=== PATIENT | male | born 1940 | race Two or more races ===

== ENCOUNTER → 2017-05-31 | Outpatient (REF) | payer MEDICARE, OTHER ==
[~2017-05-31] MED LIST: CIPR500T3 PO; FELO5TAB PO; LEVO75TA4 PO; LIPI20TA PO; MULT1TAB10 PO; OMEP20CA3 PO; PRIM50TA6 PO; QUIN1TAB15 PO; TRIA37.5 PO; TUDO1AER2 INH; TYLE650T35 PO; VENTAER INH
== END ==
LOC: M SMT 12:42
PROVIDERS: ATTEND Nurse Practitioner Women's Health
DX: R31.29 Other microscopic hematuria (principal)
CPT/HCPCS: 81001; 87086; 88108; G0463

== ENCOUNTER → 2017-11-20 | Outpatient (REF) | payer MEDICARE, OTHER | LOC: M SMT 17:03 | DX: Z85.51 Personal history of malignant neoplasm of bladder (principal) | CPT/HCPCS: 88108 ==

== ENCOUNTER → 2018-07-09 | Outpatient (REF) | payer MEDICARE, OTHER | LOC: M SMT 17:19 | DX: Z85.51 Personal history of malignant neoplasm of bladder (principal) | CPT/HCPCS: 88108 ==

== ENCOUNTER → 2018-10-08 | Outpatient (REF) | payer MEDICARE, OTHER ==
[~2018-10-08] MED LIST changes: -QUIN1TAB15 PO; +QUIN1TAB4 PO
== END ==
LOC: M SMT 17:42
PROVIDERS: ATTEND Urology
DX: C67.9 Malignant neoplasm of bladder, unspecified (principal)

== ENCOUNTER 2019-01-03 10:08 | Inpatient (IN) | payer MEDICARE, OTHER ==
[~2019-01-03] VITALS: Ht 175.3 cm; Wt 81.8 kg
[2019-01-03 12:46] VITALS: BP 136/61
[2019-01-03 13:08] LABS: PROTHROMBIN TIME 13.3 SECONDS (12.1-14.4)
[2019-01-03 13:09] LABS: PARTIAL THROMBOPLASTIN TIME 34.2 SECONDS (25.4-37.6)
[2019-01-03 13:16] LABS: ERYTHROCYTE SEDIMENTATION RATE 13 mm/hr (0-20)
[2019-01-03 13:18] LABS: C REACTIVE PROTEIN QUANTITATIV 4.09 MG/DL (0.00-0.30)
--- NOTE | 2019-01-03 13:49 | HPEPDOC ---
General Date of Admission Jan 03, 2019 at 12:03 Chief Complaint The patient is a 78-year-old male admitted with a reason for visit of Osteomyelitis. Source: Patient, Family History of Present Illness The patient is a 78-year-old gentleman who was sent over as a direct admission from the orthopedic office today. The patient has been having problems with low back pain ongoing for 3 weeks. Reports it started off as a soreness. One week later, because of persistent symptoms, he will was seen at an urgent care where he was prescribed Medrol Dosepak. He reports he did not have any imaging studies done at that time. Following the Medrol Dosepak, he continued to have the pain. He reports he made an appointment with the orthopedic office however they were not able to get him in right away. Last Monday, because of worsening pain, he went to the ER at [facility], very he underwent a CT scan that showed a couple of lesions that appeared concerning per his report. Thereafter, he reports that he was advised to undergo an MRI and the following day, he was seen in follow-up in the orthopedic office. MRI had shown abnormal appearance of L2-L3 vertebrae with edematous changes as well as abnormal enhancement, possibly infectious was as neoplastic. Therefore a bone scan was recommended. The patient underwent a bone scan on Monday that shows abnormal uptake in the L2L3 area concerning for discitis and osteomyelitis. The patient was seen in follow-up in the orthopedic office today and was referred to the hospital as a direct admission for further evaluation and management. The patient reports currently the pain at worst is a 10 over 10 in intensity, sharp in nature, radiating down to the left knee, worse when he puts weight on the left lower extremity and when he twists/runs, better with the Tylenol with Codeine. Denies any associated fevers/chills/sweats/chest pain/nausea/vomiting/diarrhea/headache/abdominal pain. He reports he was having some difficulty with urinationshe was seen in the urology office recently and started on Flomax following which he has been able to urinate better. Denies any new numbness or weakness in his extremities. He usually is fairly active however, the back pain has been limiting his activity. Currently has a lumbar brace that he uses with a walker to ambulate. Also reports some cough with greenish yellowish phlegm or the last couple of days which is new for him. Also reports some difficulty swallowing especially when he eats bread but otherwise has not noticed any difficulty with swallowing other foods. He reports underwent a left carotid endarterectomy on 12/05/18 at [facility] in [place]. Reports he was found to have problems with his carotid artery after he had recently undergone a left eye cataract surgery when he was found to have "blood clot in his eye" for which she had undergone further workup that revealed the problem with the left carotid artery stenosis. Home Medications Scheduled Acetaminophen (Tylenol Arthritis) 650 Mg Tab, 650 MG PO Q8H for ABDOMINAL PAIN Aclidinium [place] (Tudorza Pressair) 400 Mcg/Act Aer, 400 MCG INH BID, (Reported) Atorvastatin Calcium (Lipitor) 20 Mg Tab, 20 MG PO DAILY, (Reported) Ciprofloxacin HCl (Ciprofloxacin HCl) 500 Mg Tab, 500 MG PO Q12H Felodipine (Felodipine ER) 5 Mg Tab, 5 MG PO DAILY, (Reported) Levothyroxine Sodium (Levothyroxine Sodium) 75 Mcg Tab, 75 MCG PO DAILY, (Reported) Multivitamins (Multivitamin Adults) 1 Tab Tab, 1 TAB PO DAILY, (Reported) Omeprazole (Omeprazole) 20 Mg Cap, 20 MG PO DAILY, (Reported) Quinapril Hcl (Quinapril HCl) 40 Mg Tab, 40 MG PO DAILY, (Reported) Triamterene/Hydrochlorothiazid (Triamterene-Hctz 37.5-25 mg Tb) 1 Tab Tab, 1 TAB PO DAILY, (Reported) Scheduled PRN Albuterol Sulfate (Ventolin Hfa) 108 Mcg/Act Aer, 108 MCG INH Q4HP PRN for SOB/WHEEZING, (Reported) Allergies Coded Allergies: No Known Allergies (Unverified , 07/24/17) Past Medical History Medical History Hypothyroidism, COPD, GERD, non-Hodgkin's lymphoma status post chemotherapy and radiation, bladder cancer status post resection, BPH, hypertension, tremor Surgical History Colonoscopy, left inguinal hernia repair in 2005, TURBT, surveillance cystoscopy in September 2018 which was unremarkable, left carotid endarterectomy 12/05/2018, bilateral cataract surgery Family History Father passed awayhad coronary disease, mom passed awayhad congestive heart failure, one brother at age 69he had heart disease. He has 1 son and 1 daughter Social History * Smoker: Denies Alcohol: rarely Drugs: denies Review of Systems Other systems Negative for 10 systems except as noted above in history of present illness Physical Examination General Exam: Positive: Alert, Cooperative, No Acute Distress Eye Exam: Positive: PERRLA ENT Exam: Positive: Mucous membr. moist/pink Chest Exam: Positive: Clear to auscultation, Normal air movement; Negative: Rales, Rhonchi, Wheezing Heart Exam: Positive: Rate Normal, Regular Rhythm, Normal S1, Normal S2 Abdomen Exam: Positive: Soft, Other (nontender, no guarding or rigidity.) Extremity Exam: Positive: Edema (trace to 1+ edema) Skin Exam: Negative: Rash Neuro Exam: Positive: Other (cranial nerves II-12 appear normal. No pronator drift. Strength is 5 over 5 in bilateral upper extremities as well as bilateral lower extremities and ankle and knee. Intact fine touch bilaterally. Reflexes 2+ and bilaterally symmetrical in the knees.) Psych Exam: Positive: Mental status NL Vital Signs Vital Signs Date Time Temp Pulse Resp B/P (MAP) Pulse Ox O2 Delivery O2 Flow Rate FiO2 01/03/19 12:46 97.5 77 18 136/61 (86) 96 Laboratory Data Labs 24H Laboratory Tests 2 01/03/19 12:30: CBC, CMP, coagulation panel, ESR, CRP, lactic acid, blood cultures have been ordered. Use her lactate is normal. CRP is elevated at 4.09. Coagulation panel is normal. Microbiology Microbiology 01/03/19 Blood Culture, Received Pending RAD Interpretation STUDY: outpatient MRI as well as bone scan reports as noted under history of present illness. Chest x-ray has been ordered and is pending. Assessment/Plan L2-3 suspected osteomyelitis and discitis: -Discussed with interventional radiologyplan will be for CT-guided biopsy and aspiration to be sent for culture and pathology -We will start broad-spectrum IV antibiotics with vancomycin and Zosyn -Blood cultures have been sent -Infectious disease services are unavailable until Mondaywe will consult ID on Monday -Echocardiogram to rule out any underlying infective endocarditis as no other obvious source of seeding/infection -Continue Tylenol with codeine for pain control, gabapentin -Uses lumbar brace with activitymay leave brace off at rest or when sleeping. Weightbearing as tolerated with walker and brace. -PT/OT evaluation Hypertension: -Continue quinapril, felodipine, triamtereneHCTZ Hyperlipidemia: -Continue atorvastatin Tremors: -Patient has not been formally diagnosed with Parkinson's, although, he reports he is on carbidopawe will do pop. We will continue same for now. COPD, not in exacerbation: -Continue Tudorza have available with the pharmacy. Prn Ventolin Hypothyroidism: -Continue levothyroxine DVT prophylaxis: -SCDs CODE STATUS: Full code per my discussion with the patient Disposition: Admit to med surg as an inpatient for further evaluation and manag ement of possible L2-L3 discitis and osteomyelitis. Anticipated length of stay more than 2 midnights requiring inpatient hospital admission. Anticipate eventual discharge home with versus [facility] facility once medically stable Plan / VTE VTE Prophylaxis Ordered?: Yes VTE Exclusion Pharmacological: Other (Needs CT guided L2-3 biopsy) MAITE FRANCO MD Jan 03, 2019 13:15
[2019-01-03 14:00] VITALS: BP 111/63
[2019-01-03 14:02] LABS: ALBUMIN 3.4 GM/DL (3.2-5.2); ALT/SGPT 94 U/L (12-78); BILIRUBIN,TOTAL 0.7 MG/DL (0.2-1.0); BLOOD UREA NITROGEN 28 MG/DL (7-18); CALCIUM LEVEL 9.2 MG/DL (8.8-10.2); CARBON DIOXIDE LEVEL 30 MEQ/L (21-32); CHLORIDE LEVEL 101 MEQ/L (98-107); CREATININE FOR GFR 0.78 MG/DL (0.70-1.30); GLOMERULAR FILTRATION RATE > 60.0 (>35); GLUCOSE, FASTING 119 MG/DL (70-100); MAGNESIUM LEVEL 2.5 MG/DL (1.8-2.4); POTASSIUM SERUM 4.4 MEQ/L (3.5-5.1); SODIUM LEVEL 137 MEQ/L (136-145); TOTAL PROTEIN 7.2 GM/DL (6.4-8.2)
[2019-01-03] MEDS: PIPERACILLIN/TAZOBACTAM SOD 3.375 GM in D5W MINI-BAG PLUS 50 ML IV SCH ×2 (14:02→21:44)
[2019-01-03] MEDS ORDERED: TRIA37.5 PO (14:13)
[2019-01-03] MEDS ORDERED: ASPI81TA21 PO (14:13)
[2019-01-03] MEDS ORDERED: CARB25TA9 PO (14:13)
[2019-01-03] MEDS ORDERED: IBUP200T45 PO (14:13)
[2019-01-03] MEDS ORDERED: TUDO1AER2 INH (14:13)
[2019-01-03] MEDS ORDERED: FLOM0.4C39 PO (14:13)
[2019-01-03] MEDS ORDERED: GABA-1171 PO (14:13)
[2019-01-03] MEDS ORDERED: QUIN40TA26 PO (14:13)
[2019-01-03] MEDS ORDERED: ACET1TAB16 PO (14:13)
[2019-01-03] MEDS ORDERED: FELO5TAB PO (14:13)
[2019-01-03] MEDS ORDERED: SYNT75TA PO (14:13)
[2019-01-03] MEDS ORDERED: ATOR1TAB21 PO (14:13)
[2019-01-03] MEDS ORDERED: MULT-40 PO (14:13)
[2019-01-03] MEDS ORDERED: OMEP-218 PO (14:16)
[2019-01-03 14:21] LABS: HEMATOCRIT 41.7 % (42.0-52.0); HEMOGLOBIN 14.2 g/dl (13.5-17.5); MEAN CORPUSCULAR HEMOGLOBIN 29.7 pg (27.0-33.0); MEAN CORPUSCULAR HGB CONC 34.1 g/dl (32.0-36.5); MEAN CORPUSCULAR VOLUME 87.2 fl (80.0-96.0); PLATELET COUNT, AUTOMATED 233 10^3/uL (150-450); RED BLOOD COUNT 4.78 10^6/uL (4.30-6.10); WHITE BLOOD COUNT 7.9 10^3/uL (4.0-10.0)
--- NOTE | 2019-01-03 14:45 | REP ---
Portable chest, single AP view, the patient is upright, 01:54 p.m.: There are no comparison plain film studies of the chest. There is a comparison chest CT dated 10/29 2007. There is a focal density in the right upper lobe. This could be artifact from the superimposed right first rib or could be a right upper lobe infiltrate/mass. . It was not present on the comparison CT. Follow-up chest CT might be considered to differentiate lung pathology from first rib artifact. The remainder of the lung lee are clear. Cardiac size is normal. The janice, mediastinum, and skeletal structures are unremarkable. Impression: Focal density in the right upper lobe as described, right upper lobe infiltrate/mass versus right first rib artifact. Recommend chest CT for further evaluation. Electronically Signed by Josiah John MD 01/03/2019 02:37 P
[2019-01-03] MEDS ORDERED: VANCOMYCIN HCL 750 MG, VIAL MATE ADAPTER 1 EACH in D5W 250 ML IV SCH (15:00)
[2019-01-03] MEDS ORDERED: LIDOCAINE 1% MDV 20ML VIAL As Ordered ONE (15:11)
[2019-01-03] MEDS ORDERED: VANCOMYCIN HCL 1,000 MG, VIAL MATE ADAPTER 1 EACH in D5W 250 ML IV ONE ×2 (16:00→19:00)
--- NOTE | 2019-01-03 17:08 | PHACANCOPD ---
PHARMACY VANCOMYCIN DOSING Pt Demographics Demographics Patient Age:78 , Weight:81.810 , Gender: male Adjusted Body Weight Date: 01/03/19, Adjusted Body Weight: Kg Vancomycin Vancomycin indication: VERTEBRAL OSTEOMYELITIS Vancomycin Target Ranges: 15-20 mcg/ml Vancomycin Load Y/N: Yes Load Dose Date Time Vancomycin Load Dose: 1750mg Date: 01/03/19 Time: 1800 Vancomycin Dose Date: 01/03/19. Current Vancomycin Dose: [1250mg IV Q12H] Intermittent Dosing?: No Labs Labs Item Value Date Time White Blood Count 7.9 10^3/uL 01/03/19 1230 Erythrocyte Sedimentation Rate 13 mm/hr 01/03/19 1230 Blood Urea Nitrogen 28 MG/DL H 01/03/19 1230 Creatinine 0.78 MG/DL 01/03/19 1230 Lactic Acid Level 1.4 MMOL/L 01/03/19 1230 C-Reactive Protein, Quantitative 4.09 MG/DL H 01/03/19 1230 Micro Microbiology 01/03/19 Blood Culture, Received Pending 01/03/19 Gram Stain, Received Pending 01/03/19 Body Fluid Culture, Received Pending 01/03/19 MRSA Screen, Received Pending 01/03/19 Anaerobic Culture, Received Pending Creatinine Clearance Date:01/03/19. Est Creatinine Clearance: [~76ml/min]. Pending Labs Vancomycin trough scheduled 01/05/19 @0500 to be drawn with AM labs prior to the 4th dose Assessment and Plan Maintaining Current Dose?: Yes Reason for dose change: No Dose Change Pharmacist Note Pharmacist Note Date: 01/03/19. Pharmacist note: Day #1 empiric vancomycin therapy initiated with a 1750mg loading dose, followed by a maintenance regimen of 1250mg IV Q12H for the treatment of L2-L3 vertebral osteomyelitis - aiming for a goal trough of 15- 20mcg/ml. WBC, ESR, and LA are WNL. CRP is currently elevated and the patient is afebrile. CXR today also revealed "Focal density in the right upper lobe as described, right upper lobe infiltrate/mass versus right first rib artifact." Blood cultures, MRSA screen, and aspirate culture are currently pending. No PMH of MRSA or vanco use here at [facility]. A vancomycin trough has been scheduled to be drawn 01/05/19 at 0500 with AM labs, prior to the 4th dose. We will continue to monitor and make dose adjustments if needed. ALBA GALICIA PHARMACY Jan 03, 2019 17:08
[2019-01-03 17:20] VITALS: BP 140/64
[2019-01-03] MEDS: OMEPRAZOLE 20 MG CAP PO SCH (17:22)
[2019-01-03] MEDS: SINEMET 25-100 MG TAB PO SCH ×2 (17:22→21:44)
[2019-01-03] MEDS: DYAZIDE 37.5/25 CAP (TRIAM/HCTZ) PO SCH (17:22)
[2019-01-03] MEDS: amLODIPine 5 MG TAB PO SCH (17:23)
[2019-01-03] MEDS: VANCOMYCIN HCL 750 MG, VIAL MATE ADAPTER 1 EACH in D5W 250 ML IV SCH (17:23)
--- NOTE | 2019-01-03 17:26 | REP ---
CT-GUIDED L2-3 DISC BIOPSY/ASPIRATION The procedure was performed under the direct supervision of Dr. Moreno. The risks and benefits of the procedure were explained to the patient and informed consent was obtained. The L2-3 disc space was localized using CT guidance. The skin was prepped and draped in a sterile fashion. 1% lidocaine was used as a local anesthetic. Using CT guidance a 19/20 gauge coaxial needle biopsy system was inserted and advanced into the mass. 1 ml of low viscosity red colored fluid was withdrawn. Four core biopsy samples were obtained. All samples were sent to the lab for analysis. The patient tolerated the procedure well and there were no immediate complications. After the appropriate amount of monitored convalescence the patient was discharged from the department. Reviewed by PRADIP Rojas 01/03/2019 05:10 P Electronically Signed by Neeraj Moreno MD 01/03/2019 05:17 P
[2019-01-03] MEDS: GABAPENTIN 100 MG CAP PO SCH (21:44)
[2019-01-03] MEDS: ATORVASTATIN 20 MG TAB PO SCH (21:44)
[2019-01-03] MEDS: TAMSULOSIN 0.4 MG CAP PO SCH (21:44)
[2019-01-03] MEDS: QUINAPRIL 20 MG TAB PO SCH (21:45)
[2019-01-03 22:00] VITALS: BP 141/77
[2019-01-03] MEDS: ACETAMINOPH W/CODEINE #3 TAB UD PO PRN (22:59)
[2019-01-04] MEDS: PIPERACILLIN/TAZOBACTAM SOD 3.375 GM in D5W MINI-BAG PLUS 50 ML IV SCH ×4 (02:59→20:32)
[2019-01-04] MEDS: ACETAMINOPH W/CODEINE #3 TAB UD PO PRN ×2 (04:41→17:26)
[2019-01-04] MEDS: LEVOTHYROXINE 75MCG TABLET (0.075MG) PO SCH (05:35)
[2019-01-04] MEDS: VANCOMYCIN HCL 750 MG, VIAL MATE ADAPTER 1 EACH in D5W 250 ML IV SCH ×2 (05:35→17:25)
[2019-01-04 06:00] VITALS: BP 125/73
[2019-01-04 08:09] LABS: BASO % 0.3 % (0.0-1.0); EOS # 0.1 10^3/uL (0.0-0.50); HEMATOCRIT 41.3 % (42.0-52.0); HEMOGLOBIN 14.2 g/dl (13.5-17.5); LYMPH # 0.7 10^3/uL (1.5-4.5); LYMPH % 9.6 % (24.0-44.0); MEAN CORPUSCULAR HEMOGLOBIN 29.6 pg (27.0-33.0); MEAN CORPUSCULAR HGB CONC 34.4 g/dl (32.0-36.5); MONO # 0.6 10^3/uL (0.0-0.8); MONO % 7.5 % (0.0-5.0); NEUTROPHILS % 81.3 % (36.0-66.0); PLATELET COUNT, AUTOMATED 252 10^3/uL (150-450); WHITE BLOOD COUNT 7.4 10^3/uL (4.0-10.0)
[2019-01-04] MEDS: VANCOMYCIN HCL 500 MG in D5W MINI-BAG PLUS 100 ML IV SCH ×2 (08:12→19:20)
[2019-01-04 08:19] LABS: ALT/SGPT 61 U/L (12-78); BILIRUBIN,TOTAL 0.8 MG/DL (0.2-1.0); BLOOD UREA NITROGEN 20 MG/DL (7-18); CALCIUM LEVEL 8.8 MG/DL (8.8-10.2); CARBON DIOXIDE LEVEL 28 MEQ/L (21-32); CHLORIDE LEVEL 102 MEQ/L (98-107); CREATININE FOR GFR 0.82 MG/DL (0.70-1.30); GLOMERULAR FILTRATION RATE > 60.0 (>35); GLUCOSE, FASTING 137 MG/DL (70-100); MAGNESIUM LEVEL 2.1 MG/DL (1.8-2.4); PHOSPHORUS LEVEL 2.8 MG/DL (2.5-4.9); POTASSIUM SERUM 3.8 MEQ/L (3.5-5.1); SODIUM LEVEL 137 MEQ/L (136-145)
[2019-01-04] MEDS ORDERED: PNEUMOCOCCAL VACCINE 0.5ML SYRINGE(90732) PNEUMOVAX 23 IM ONE (09:00)
[2019-01-04] MEDS: DYAZIDE 37.5/25 CAP (TRIAM/HCTZ) PO SCH (09:41)
[2019-01-04] MEDS: GABAPENTIN 100 MG CAP PO SCH ×2 (09:41→20:32)
[2019-01-04] MEDS: SINEMET 25-100 MG TAB PO SCH ×3 (09:41→20:32)
[2019-01-04] MEDS: OMEPRAZOLE 20 MG CAP PO SCH (09:41)
[2019-01-04] MEDS: amLODIPine 5 MG TAB PO SCH (09:41)
[2019-01-04] MEDS: ACETAMINOPHEN TAB 650MG DOSE (2X325MG) PO PRN ×2 (11:07→23:56)
[2019-01-04 14:00] VITALS: BP 133/75
--- NOTE | 2019-01-04 16:41 | IPNPDOC ---
Subjective Date Seen The patient was seen on 01/04/19. Subjective Chief Complaint/HPI The patient is a 78-year-old gentleman admitted to the hospital as a direct admission from orthopedic office for concerns regarding back pain with MRI and bone scan concerning for L2-3 osteomyelitis and discitis Events since last encounter The patient reports the back pains and perhaps seems a little better compared to yesterday. Able to bend to the side and little better. Did have an episode of pain when he was up with pain radiating down to the left knee as before and resolved after he sat down. Denies any associated overnight fevers/chills or sweats. No chest pain or shortness of breath. No nausea or vomiting. Urinating okay and having bowel movements okay. Objective Physical Examination General Exam: Positive: Alert, Cooperative, No Acute Distress Eye Exam: Positive: PERRLA ENT Exam: Positive: Mucous membr. moist/pink Chest Exam: Positive: Clear to auscultation, Normal air movement Heart Exam: Positive: Rate Normal, Regular Rhythm, Normal S1, Normal S2 Abdomen Exam: Positive: Soft, Other (nontender) Extremity Exam: Positive: Edema (trace to 1+ edema) Neuro Exam: Positive: Other (strength 5 over 5 in bilateral ankles. Intact fine touch bilateral lower extremities.) Psych Exam: Positive: Mental status NL Assessment /Plan Assessment L2-3 suspected osteomyelitis and discitis: -Status post biopsy for pathology and micro-by interventional radiology on 01/03/19results pending. Possible noted on Gram stain. No obvious bacteria noted on Gram stain. -Ct vancomycin and Zosyn. Plan will be for ID consultation on Monday. -Blood cultures have been sent - no growth thus far -Echocardiogram to rule out any underlying infective endocarditis as no other obvious source of seeding/infection - pending -Continue Tylenol with codeine for pain control, gabapentin -Uses lumbar brace with activitymay leave brace off at rest or when sleeping. Weightbearing as tolerated with walker and brace. -Ct PT/OT Abnormal chest x-ray: -Right upper lung field had shown focal density in the right upper lobeeither infiltrate/mass was his right first rib artifact -Discussed with patient and daughter at bedside regarding obtaining CT scan of chest with contrast to evaluate this density better and to rule out any underlying infection/mass -Initially patient agreed to undergo CT, but later refused the same. Reported he has had abnormal scans seconded to his history of lymphoma. Given that he does not want the CT scan of the chest done, the order was discontinued. Hypertension: -Continue quinapril, amlodipine (as a substitute for felodipine), triamtereneH CTZ Hyperlipidemia: -Continue atorvastatin Tremors: -Continue carbidopalevodopa COPD, not in exacerbation: -Continue Tudorza if able to bring med in. Prn Ventolin Hypothyroidism: -Continue levothyroxine DVT PPx: -SCDs Disposition: Continue IV antibiotics. I would echocardiogram. Plan ID consu ltation on Monday to determine duration of treatment. Follow-up on cultures and pathology from IR guided aspiration and biopsy Plan/VTE VTE Prophylaxis Ordered?: Yes VTE Exclusion Pharmacological: Other (Needs CT guided L2-3 biopsy) VS, I&O, 24H, Fishbone Vital Signs/I&O Vital Signs Date Time Temp Pulse Resp B/P (MAP) Pulse Ox O2 Delivery O2 Flow Rate FiO2 01/04/19 09:41 82 125/73 01/04/19 06:00 98.2 19 95 I&O- Last 24 Hours up to 6 AM 01/04/19 06:00 Intake Total 1735 ml Output Total 2300 ml Balance -565 ml Laboratory Data 24H LABS Laboratory Tests 2 01/04/19 07:37: Immature Granulocyte % (Auto) 0.3, White Blood Count 7.4, Red Blood Count 4.80, Hemoglobin 14.2, Hematocrit 41.3L, Mean Corpuscular Volume 86.0, Mean Corpuscular Hemoglobin 29.6, Mean Corpuscular Hemoglobin Concent 34.4, Red Cell Distribution Width 13.2, Platelet Count 252, Neutrophils (%) (Auto) 81.3H, Lymphocytes (%) (Auto) 9.6L, Monocytes (%) (Auto) 7.5H, Eosinophils (%) (Auto) 1.0, Basophils (%) (Auto) 0.3, Neutrophils # (Auto) 6.0, Lymphocytes # (Auto) 0.7L, Monocytes # (Auto) 0.6, Eosinophils # (Auto) 0.1, Basophils # (Auto) 0.0, Nucleated Red Blood Cells % (auto) 0.0 01/04/19 07:38: Anion Gap 7L, Glomerular Filtration Rate > 60.0, Blood Urea Nitrogen 20H, Creatinine 0.82, Sodium Level 137, Potassium Level 3.8, Chloride Level 102, Carbon Dioxide Level 28, Calcium Level 8.8, Phosphorus Level 2.8, Aspartate Amino Transf (AST/SGOT) 63H, Alanine Aminotransferase (ALT/SGPT) 61, Alkaline Phosphatase 153H, Total Bilirubin 0.8, Total Protein 7.0, Albumin 3.0L, Magnesi um Level 2.1, Albumin/Globulin Ratio 0.75L CBC/BMP Laboratory Tests 01/04/19 07:37 Red Blood Count 4.80, Mean Corpuscular Volume 86.0, Mean Corpuscular Hemoglobin 29.6, Mean Corpuscular Hemoglobin Concent 34.4, Red Cell Distribution Width 13.2, Neutrophils (%) (Auto) 81.3 H, Lymphocytes (%) (Auto) 9.6 L, Monocytes (%) (Auto) 7.5 H, Eosinophils (%) (Auto) 1.0, Basophils (%) (Auto) 0.3, Neutrophils # (Auto) 6.0, Lymphocytes # (Auto) 0.7 L, Monocytes # (Auto) 0.6, Eosinophils # (Auto) 0.1, Basophils # (Auto) 0.0 01/04/19 07:38 Calcium Level 8.8, Phosphorus Level 2.8, Aspartate Amino Transf (AST/SGOT) 63 H, Alanine Aminotransferase (ALT/SGPT) 61, Alkaline Phosphatase 153 H, Total Bilirubin 0.8, Total Protein 7.0, Albumin 3.0 L Microbiology Microbiology 01/03/19 Blood Culture - Preliminary, Resulted No growth after 24 hours . All specim... 01/03/19 Gram Stain - Final, Resulted 01/03/19 Body Fluid Culture, Resulted Pending 01/03/19 MRSA Screen - Final, Complete 01/03/19 Anaerobic Culture, Received Pending MAITE FRANCO MD Jan 04, 2019 16:41
[2019-01-04] MEDS: QUINAPRIL 20 MG TAB PO SCH (20:32)
[2019-01-04] MEDS: ATORVASTATIN 20 MG TAB PO SCH (20:32)
[2019-01-04] MEDS: TAMSULOSIN 0.4 MG CAP PO SCH (20:32)
[2019-01-04 22:00] VITALS: BP 116/77
[2019-01-04 23:30] VITALS: BP 109/59
[2019-01-05] MEDS: PIPERACILLIN/TAZOBACTAM SOD 3.375 GM in D5W MINI-BAG PLUS 50 ML IV SCH ×4 (02:30→20:30)
[2019-01-05] MEDS: ACETAMINOPH W/CODEINE #3 TAB UD PO PRN ×5 (05:07→20:30)
[2019-01-05 06:00] VITALS: BP 114/61
[2019-01-05 06:20] LABS: BASO % 0.3 % (0.0-1.0); EOS # 0.1 10^3/uL (0.0-0.50); EOS % 1.2 % (0.0-3.0); HEMATOCRIT 39.7 % (42.0-52.0); HEMOGLOBIN 13.5 g/dl (13.5-17.5); LYMPH # 1.2 10^3/uL (1.5-4.5); LYMPH % 18.1 % (24.0-44.0); MEAN CORPUSCULAR HEMOGLOBIN 29.5 pg (27.0-33.0); MEAN CORPUSCULAR VOLUME 86.7 fl (80.0-96.0); MONO # 0.7 10^3/uL (0.0-0.8); MONO % 11.1 % (0.0-5.0); NEUTROPHILS # 4.5 10^3/uL (1.8-7.7); PLATELET COUNT, AUTOMATED 227 10^3/uL (150-450); RED BLOOD COUNT 4.58 10^6/uL (4.30-6.10); WHITE BLOOD COUNT 6.5 10^3/uL (4.0-10.0)
[2019-01-05 06:43] LABS: ALT/SGPT 73 U/L (12-78); BILIRUBIN,TOTAL 0.7 MG/DL (0.2-1.0); BLOOD UREA NITROGEN 19 MG/DL (7-18); CALCIUM LEVEL 8.8 MG/DL (8.8-10.2); CARBON DIOXIDE LEVEL 30 MEQ/L (21-32); CHLORIDE LEVEL 102 MEQ/L (98-107); CREATININE FOR GFR 0.85 MG/DL (0.70-1.30); GLOMERULAR FILTRATION RATE > 60.0 (>35); GLUCOSE, FASTING 91 MG/DL (70-100); PHOSPHORUS LEVEL 3.4 MG/DL (2.5-4.9); POTASSIUM SERUM 4.2 MEQ/L (3.5-5.1); SODIUM LEVEL 138 MEQ/L (136-145); TOTAL PROTEIN 6.9 GM/DL (6.4-8.2)
--- NOTE | 2019-01-05 06:49 | PHACANCOPD ---
PHARMACY VANCOMYCIN DOSING Pt Demographics Demographics Patient Age:78 , Weight:81.810 , Gender: male Adjusted Body Weight Date: 01/03/19, Adjusted Body Weight: Kg Vancomycin Vancomycin indication: VERTEBRAL OSTEOMYELITIS Vancomycin Target Ranges: 15-20 mcg/ml Vancomycin Load Y/N: Yes Load Dose Date Time Vancomycin Load Dose: 1750mg Date: 01/03/19 Time: 1800 Vancomycin Dose Date: 01/03/19. Current Vancomycin Dose: [1250mg IV Q12H] Intermittent Dosing?: No Labs Micro Microbiology 01/03/19 Blood Culture - Preliminary, Resulted No growth after 24 hours . All specim... 01/03/19 Gram Stain - Final, Complete 01/03/19 Body Fluid Culture - Final, Complete 01/03/19 MRSA Screen - Final, Complete 01/03/19 Anaerobic Culture - Final, Complete Creatinine Clearance Date:01/03/19. Est Creatinine Clearance: [~76ml/min]. Pending Labs Vancomycin trough scheduled 01/05/19 @0500 to be drawn with AM labs prior to the 4th dose Assessment and Plan Maintaining Current Dose?: Yes Reason for dose change: No Dose Change Pharmacist Note Pharmacist Note Date: 01/05/19. Pharmacist note:[facility]com[facility] reported as 16-will maintain current 1250mg [id number] dosing Date: 01/03/19. Pharmacist note: Day #1 empiric vancomycin therapy initiated with a 1750mg loading dose, followed by a maintenance regimen of 1250mg IV Q12H for the treatment of L2-L3 vertebral osteomyelitis - aiming for a goal trough of 15- 20mcg/ml. WBC, ESR, and LA are WNL. CRP is currently elevated and the patient is afebrile. CXR today also revealed "Focal density in the right upper lobe as described, right upper lobe infiltrate/mass versus right first rib artifact." Blood cultures, MRSA screen, and aspirate culture are currently pending. No PMH of MRSA or vanco use here at [facility]. A vancomycin trough has been scheduled to be drawn 01/05/19 at 0500 with AM labs, prior to the 4th dose. We will continue to monitor and make dose adjustments if needed. DOMINIC HADLEY PHARMACY Jan 05, 2019 06:49
[2019-01-05] MEDS: LEVOTHYROXINE 75MCG TABLET (0.075MG) PO SCH (06:50)
[2019-01-05] MEDS: VANCOMYCIN HCL 750 MG, VIAL MATE ADAPTER 1 EACH in D5W 250 ML IV SCH ×2 (06:50→17:44)
[2019-01-05] MEDS: VANCOMYCIN HCL 500 MG in D5W MINI-BAG PLUS 100 ML IV SCH ×2 (07:56→18:52)
[2019-01-05] MEDS: ASPIRIN 81 MG ENTERIC TAB PO SCH (08:40)
[2019-01-05] MEDS: GABAPENTIN 100 MG CAP PO SCH ×2 (08:40→20:29)
[2019-01-05] MEDS: DYAZIDE 37.5/25 CAP (TRIAM/HCTZ) PO SCH (08:40)
[2019-01-05] MEDS: OMEPRAZOLE 20 MG CAP PO SCH (08:40)
[2019-01-05] MEDS: SINEMET 25-100 MG TAB PO SCH ×3 (08:40→20:29)
[2019-01-05] MEDS: amLODIPine 5 MG TAB PO SCH (08:41)
[2019-01-05 09:00] VITALS: BP 117/55
[2019-01-05] MEDS: TUDORZA PRESSAIR 400 MCG INH SCH ×2 (09:00→20:31)
--- NOTE | 2019-01-05 10:38 | ECHO ---
DATE OF PROCEDURE: 01/04/2019 AGE: 78 GENDER: Male REFERRING PHYSICIAN: Dr. Epi Andrade. HEIGHT: 69 inches. WEIGHT: 180 pounds. BODY SURFACE AREA: 1.98 sq m. INPATIENT: [address] [place] [address] Room 5143 INDICATION: Rule out endocarditis. MEASUREMENTS: 2D MEASUREMENTS: RV - 4.1 cm LV- 4.8 cm Septum - 1.1 cm Posterior wall - 1.0 cm Aortic root - 3.5 cm LA - 3.2 cm LVEF - 65% DOPPLER MEASUREMENTS: AV - 1.44 m/s LVOT - 1.01 m/s LVOT diameter - 2.2 cm MV-E: 51 A: 61 EA ratio 0.8 Early mitral deacceleration time: 289 ms E-prime - 5.6 A-prime - 9 E/E prime ratio: 9.2 PV - 0.8 m/s Pulmonary artery acceleration time: 113 ms PASP - 28 mmHg IVC - Could not be visualized COMMENTS: Normal sinus rhythm with intraventricular conduction disturbance. Technically challenging study in light of the patient's body habitus but some diagnostically useful information was still obtained. M-mode and two-dimensional echocardiography was performed with pulsed, continuous wave, color flow and tissue Doppler studies. Normal left ventricular size, wall thickness and wall motion. Normal left atrial size with Doppler evidence of a degree of impaired LV diastolic function (consistent with age). Normal estimated mean left atrial pressure. Normal right heart chamber sizes and motion and estimated pulmonary atrial pressure. IVC size could not be determined because of technical difficulties with the patient's body habitus. Mild aortic valvular sclerosis without stenosis and only trace insufficiency. Normal aortic root size. Slightly thickened mitral annulus but no functional valvular abnormality. No apparent intracardiac mass or pericardial effusion. Especially with this patient's body habitus and poor image quality, if endocarditis is seriously suspect, the investigation of choice would be a transesophageal echocardiogram. GABBY
[2019-01-05 13:00] VITALS: BP 112/59
--- NOTE | 2019-01-05 17:34 | IPNPDOC ---
Subjective Date Seen The patient was seen on 01/05/19. 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 Denies any overnight problems with fevers/chills or sweats. No nausea or vomiting. Denies any shortness of breath or chest pain. Tolerating oral intake. Urinating okay and having bowel movements okay. Objective Physical Examination General Exam: Positive: Alert, Cooperative, No Acute Distress, Other (sitting up in chair) Eye Exam: Positive: PERRLA ENT Exam: Positive: Mucous membr. moist/pink Chest Exam: Positive: Clear to auscultation, Normal air movement; Negative: Rales, Rhonchi, Wheezing Heart Exam: Positive: Rate Normal, Regular Rhythm, Normal S1, Normal S2 Abdomen Exam: Positive: Soft; Negative: Tenderness Extremity Exam: Positive: Edema (trace edema) Neuro Exam: Positive: Other (awake, alert, answering questions appropriately. Intact strength in bilateral lower extremity. Intact fine touch.) Psych Exam: Positive: Mental status NL RAD Interpretation STUDY: Echocardiogram: Limited secondary to body habitus, No obvious intracardiac mass. Diastolic dysfunction consistent with age. Assessment /Plan Assessment L2-3 suspected osteomyelitis and discitis: -Status post biopsy for pathology and micro-by interventional radiology on 01/03/19- no growth aerobically/anaerobically on aspirate. Pathology pending. -Ct vancomycin Day 2 and Zosyn Day 2. Plan will be for ID consultation on Monday. -Blood cultures - no growth thus far -Echocardiogram did not show any obvious intracardiac mass. However limited secondary to patient's body habitus. -Continue Tylenol with codeine for pain control, gabapentin -Lumbar brace with activitymay leave brace off at rest or when sleeping. Weightbearing as tolerated with walker and brace. -Ct PT/OT Abnormal chest x-ray: -Right upper lung field had shown focal density in the right upper lobeeither infiltrate/mass vs right first rib artifact -Patient refused CT scan of chestdiscussed with him todayreports he has previously had x-rays done a few times that showed similar findings in the right upper lobe that was later determined to be possibly related to radiation he had received previouslydoes not want CT chest at this time. Hypertension: -Continue quinapril, amlodipine (as a substitute for felodipine), [id number] Hyperlipidemia: -Continue atorvastatin Tremors: -Continue carbidopalevodopa COPD, not in exacerbation: -Continue Tudorza if able to bring med in. Prn Ventolin Hypothyroidism: -Continue levothyroxine DVT PPx: -SCDs Disposition: Continue IV antibiotics. Plan ID consultation on Monday to determine duration of treatment. Follow-up on final cultures and pathology from IR guided aspiration and biopsy Plan/VTE VTE Prophylaxis Ordered?: Yes VTE Exclusion Pharmacological: Other (Needs CT guided L2-3 biopsy) VS, I&O, 24H, Fishbone Vital Signs/I&O Vital Signs Date Time Temp Pulse Resp B/P (MAP) Pulse Ox O2 Delivery O2 Flow Rate FiO2 01/05/19 14:53 18 01/05/19 13:00 97.3 102 112/59 (76) 97 I&O- Last 24 Hours up to 6 AM 01/05/19 06:00 Intake Total 1290 ml Output Total 2250 ml Balance -960 ml Laboratory Data 24H LABS Laboratory Tests 2 01/05/19 05:18: Immature Granulocyte % (Auto) 0.3, White Blood Count 6.5, Red Blood Count 4.58, Hemoglobin 13.5, Hematocrit 39.7L, Mean Corpuscular Volume 86.7, Mean Corpuscular Hemoglobin 29.5, Mean Corpuscular Hemoglobin Concent 34.0, Red Cell Distribution Width 13.1, Platelet Count 227, Neutrophils (%) (Auto) 69.0H, Lymphocytes (%) (Auto) 18.1L, Monocytes (%) (Auto) 11.1H, Eosinophils (%) (Auto) 1.2, Basophils (%) (Auto) 0.3, Neutrophils # (Auto) 4.5, Lymphocytes # (Auto) 1.2L, Monocytes # (Auto) 0.7, Eosinophils # (Auto) 0.1, Basophils # (Auto) 0.0, Nucleated Red Blood Cells % (auto) 0.0, Anion Gap 6L, Glomerular Filtration Rate > 60.0, Blood Urea Nitrogen 19H, Creatinine 0.85, Sodium Level 138, Potassium Level 4.2, Chloride Level 102, Carbon Dioxide Level 30, Calcium Level 8.8, Phosphorus Level 3.4#, Aspartate Amino Transf (AST/SGOT) 28, Alanine Aminotransferase (ALT/SGPT) 73, Alkaline Phosphatase 135H, Total Bilirubin 0.7, Total Protein 6.9, Albumin 3.0L, Magnesium Level 2.0, Albumin/Globulin Ratio 0.77L, Vancomycin Level Trough 16.0 CBC/BMP Laboratory Tests 01/05/19 05:18 Red Blood Count 4.58, Mean Corpuscular Volume 86.7, Mean Corpuscular Hemoglobin 29.5, Mean Corpuscular Hemoglobin Concent 34.0, Red Cell Distribution Width 13.1, Neutrophils (%) (Auto) 69.0 H, Lymphocytes (%) (Auto) 18.1 L, Monocytes (%) (Auto) 11.1 H, Eosinophils (%) (Auto) 1.2, Basophils (%) (Auto) 0.3, Neutrophils # (Auto) 4.5, Lymphocytes # (Auto) 1.2 L, Monocytes # (Auto) 0.7, Eosinophils # (Auto) 0.1, Basophils # (Auto) 0.0, Calcium Level 8.8, Phosphorus Level 3.4 #, Aspartate Amino Transf (AST/SGOT) 28, Alanine Aminotransferase (ALT/SGPT) 73, Alkaline Phosphatase 135 H, Total Bilirubin 0.7, Total Protein 6.9, Albumin 3.0 L Microbiology Microbiology 01/03/19 Blood Culture - Preliminary, Resulted No Growth after 48 hours. All Specime... 01/03/19 Gram Stain - Final, Complete 01/03/19 Body Fluid Culture - Final, Complete 01/03/19 MRSA Screen - Final, Complete 01/03/19 Anaerobic Culture - Final, Complete MAITE FRANCO MD Jan 05, 2019 17:34
[2019-01-05] MEDS: TAMSULOSIN 0.4 MG CAP PO SCH (20:29)
[2019-01-05] MEDS: QUINAPRIL 20 MG TAB PO SCH (20:29)
[2019-01-05] MEDS: ATORVASTATIN 20 MG TAB PO SCH (20:29)
[2019-01-05 22:00] VITALS: BP 127/68
[2019-01-06] MEDS: PIPERACILLIN/TAZOBACTAM SOD 3.375 GM in D5W MINI-BAG PLUS 50 ML IV SCH ×4 (02:13→20:05)
[2019-01-06 06:00] VITALS: BP 121/74
[2019-01-06] MEDS: VANCOMYCIN HCL 750 MG, VIAL MATE ADAPTER 1 EACH in D5W 250 ML IV SCH ×2 (06:01→17:06)
[2019-01-06] MEDS: ACETAMINOPH W/CODEINE #3 TAB UD PO PRN ×4 (06:01→21:36)
[2019-01-06] MEDS: LEVOTHYROXINE 75MCG TABLET (0.075MG) PO SCH (06:01)
[2019-01-06 06:12] LABS: BASO % 0.3 % (0.0-1.0); EOS # 0.2 10^3/uL (0.0-0.50); EOS % 2.2 % (0.0-3.0); HEMATOCRIT 38.7 % (42.0-52.0); LYMPH # 1.3 10^3/uL (1.5-4.5); LYMPH % 18.7 % (24.0-44.0); MEAN CORPUSCULAR HEMOGLOBIN 29.5 pg (27.0-33.0); MEAN CORPUSCULAR HGB CONC 33.6 g/dl (32.0-36.5); MEAN CORPUSCULAR VOLUME 87.8 fl (80.0-96.0); MONO # 0.7 10^3/uL (0.0-0.8); MONO % 10.8 % (0.0-5.0); NEUTROPHILS # 4.5 10^3/uL (1.8-7.7); NEUTROPHILS % 67.6 % (36.0-66.0); PLATELET COUNT, AUTOMATED 231 10^3/uL (150-450); RED BLOOD COUNT 4.41 10^6/uL (4.30-6.10); WHITE BLOOD COUNT 6.7 10^3/uL (4.0-10.0)
[2019-01-06 06:32] LABS: BLOOD UREA NITROGEN 22 MG/DL (7-18); CARBON DIOXIDE LEVEL 30 MEQ/L (21-32); CHLORIDE LEVEL 103 MEQ/L (98-107); CREATININE FOR GFR 0.94 MG/DL (0.70-1.30); GLOMERULAR FILTRATION RATE > 60.0 (>35); GLUCOSE, FASTING 91 MG/DL (70-100); MAGNESIUM LEVEL 2.1 MG/DL (1.8-2.4); POTASSIUM SERUM 3.8 MEQ/L (3.5-5.1); SODIUM LEVEL 139 MEQ/L (136-145)
[2019-01-06] MEDS: VANCOMYCIN HCL 500 MG in D5W MINI-BAG PLUS 100 ML IV SCH ×2 (07:15→18:09)
[2019-01-06] MEDS: TUDORZA PRESSAIR 400 MCG INH SCH ×2 (07:43→21:00)
[2019-01-06] MEDS: GABAPENTIN 100 MG CAP PO SCH ×2 (08:19→20:08)
[2019-01-06] MEDS: DYAZIDE 37.5/25 CAP (TRIAM/HCTZ) PO SCH (08:19)
[2019-01-06] MEDS: amLODIPine 5 MG TAB PO SCH (08:21)
[2019-01-06] MEDS: SINEMET 25-100 MG TAB PO SCH ×3 (08:21→20:08)
[2019-01-06] MEDS: ASPIRIN 81 MG ENTERIC TAB PO SCH (08:21)
[2019-01-06] MEDS: OMEPRAZOLE 20 MG CAP PO SCH (08:22)
[2019-01-06 14:00] VITALS: BP 123/61
--- NOTE | 2019-01-06 16:15 | IPNPDOC ---
Subjective Date Seen The patient was seen on 01/06/19. 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 In certain positions, he does not have the pain much and in certain positions, it seems to be as bad as 10 over 10 in intensity. Reports he was able to sleep well last n ight and was infected regularly on his side. Urinating okay and having bowel movements okay. Denies any chest pain or shortness of breath. No cough. No headache. Tolerating oral intake. Reports he was able to ambulate better to the bathroom and back today Objective Physical Examination General Exam: Positive: Alert, Cooperative, No Acute Distress, Other (sitting up in chair) Eye Exam: Positive: PERRLA ENT Exam: Positive: Mucous membr. moist/pink Chest Exam: Positive: Clear to auscultation, Normal air movement; Negative: Rales, Rhonchi, Wheezing Heart Exam: Positive: Rate Normal, Regular Rhythm, Normal S1, Normal S2 Abdomen Exam: Positive: Soft; Negative: Tenderness Neuro Exam: Positive: Other (strength 5 over 5 in bilateral ankles to dorsi and plantar flexion.) Psych Exam: Positive: Mental status NL Assessment /Plan Assessment L2-3 suspected osteomyelitis and discitis: -Status post biopsy for pathology and micro-by interventional radiology on 12/17 05/06 -No growth aerobically/anaerobically on aspirate. Pathology pending. -Ct vancomycin Day 3 and Zosyn Day 3. Plan for ID consultation tmrw. Based on recommendations, anticipate patient may need PICC line tomorrow -Blood cultures - no growth @ 72 hrs -Echocardiogram did not show any obvious intracardiac mass. However limited secondary to patient's body habitus. Will d/w ID regards need for LYLE -Continue Tylenol with codeine for pain control, gabapentin -Lumbar brace with activitymay leave brace off at rest or when sleeping. Weightbearing as tolerated with walker and brace. -Ct PT/OT Abnormal chest x-ray: -Right upper lung field had shown focal density in the right upper lobeeither infiltrate/mass vs right first rib artifact -Patient refused CT scan of chestreports he has previously had x-rays done a few times that showed similar findings in the right upper lobe that was later determined to be possibly related to radiation he had received previouslydoes not want CT chest Hypertension: -Continue quinapril, amlodipine (as a substitute for felodipine), triamtereneHCTZ -Blood pressure is well controlled Hyperlipidemia: -Continue atorvastatin Tremors: -Continue carbidopalevodopa COPD, not in exacerbation: -Continue Tudorza if able to bring med in. Prn Ventolin Hypothyroidism: -Continue levothyroxine DVT PPx: -SCDs Disposition: -We will discuss with ID tomorrow regarding antibiotics and duration. May need PICC line. The larger pendingmany to follow-up on same as outpatient. Anticipate discharge home hopefully within the next 24-48 hours once arrangements can be made for the antibiotics at home. Plan/VTE VTE Prophylaxis Ordered?: Yes VTE Exclusion Pharmacological: Other (Needs CT guided L2-3 biopsy) VS, I&O, 24H, Fishbone Vital Signs/I&O Vital Signs Date Time Temp Pulse Resp B/P (MAP) Pulse Ox O2 Delivery O2 Flow Rate FiO2 01/06/19 14:54 18 01/06/19 14:00 97.5 82 123/61 (81) 95 I&O- Last 24 Hours up to 6 AM 01/06/19 06:00 Intake Total 2160 ml Output Total 2300 ml Balance -140 ml Laboratory Data 24H LABS Laboratory Tests 2 01/06/19 05:22: Immature Granulocyte % (Auto) 0.4, White Blood Count 6.7, Red Blood Count 4.41, Hemoglobin 13.0L, Hematocrit 38.7L, Mean Corpuscular Volume 87.8, Mean Corpuscular Hemoglobin 29.5, Mean Corpuscular Hemoglobin Concent 33.6, Red Cell Distribution Width 13.2, Platelet Count 231, Neutrophils (%) (Auto) 67.6H, Lymphocytes (%) (Auto) 18.7L, Monocytes (%) (Auto) 10.8H, Eosinophils (%) (Auto) 2.2, Basophils (%) (Auto) 0.3, Neutrophils # (Auto) 4.5, Lymphocytes # (Auto) 1.3L, Monocytes # (Auto) 0.7, Eosinophils # (Auto) 0.2, Basophils # (Auto) 0.0, Nucleated Red Blood Cells % (auto) 0.0, Anion Gap 6L, Glomerular Filtration Rate > 60.0, Blood Urea Nitrogen 22H, Creatinine 0.94, Sodium Level 139, Potassium Level 3.8, Chloride Level 103, Carbon Dioxide Level 30, Calcium Level 9.0, Magnesium Level 2.1 CBC/BMP Laboratory Tests 01/06/19 05:22 Red Blood Count 4.41, Mean Corpuscular Volume 87.8, Mean Corpuscular Hemoglobin 29.5, Mean Corpuscular Hemoglobin Concent 33.6, Red Cell Distribution Width 13.2, Neutrophils (%) (Auto) 67.6 H, Lymphocytes (%) (Auto) 18.7 L, Monocytes (%) (Auto) 10.8 H, Eosinophils (%) (Auto) 2.2, Basophils (%) (Auto) 0.3, Neutrophils # (Auto) 4.5, Lymphocytes # (Auto) 1.3 L, Monocytes # (Auto) 0.7, Eosinophils # (Auto) 0.2, Basophils # (Auto) 0.0, Calcium Level 9.0 Microbiology Microbiology 01/03/19 Blood Culture - Preliminary, Resulted No Growth after 72 hours. All specime... 01/03/19 Gram Stain - Final, Complete 01/03/19 Body Fluid Culture - Final, Complete 01/03/19 MRSA Screen - Final, Complete 01/03/19 Anaerobic Culture - Final, Complete MAITE FRANCO MD Jan 06, 2019 16:08
[2019-01-06] MEDS: QUINAPRIL 20 MG TAB PO SCH (20:07)
[2019-01-06] MEDS: TAMSULOSIN 0.4 MG CAP PO SCH (20:08)
[2019-01-06] MEDS: ATORVASTATIN 20 MG TAB PO SCH (20:08)
[2019-01-06 22:00] VITALS: BP 143/65
[2019-01-07] MEDS: PIPERACILLIN/TAZOBACTAM SOD 3.375 GM in D5W MINI-BAG PLUS 50 ML IV SCH ×4 (01:45→20:06)
[2019-01-07 05:33] LABS: BASO % 0.7 % (0.0-1.0); EOS # 0.1 10^3/uL (0.0-0.50); EOS % 2.3 % (0.0-3.0); HEMATOCRIT 39.3 % (42.0-52.0); HEMOGLOBIN 13.5 g/dl (13.5-17.5); LYMPH # 1.2 10^3/uL (1.5-4.5); LYMPH % 19.4 % (24.0-44.0); MEAN CORPUSCULAR HEMOGLOBIN 30.1 pg (27.0-33.0); MEAN CORPUSCULAR HGB CONC 34.4 g/dl (32.0-36.5); MEAN CORPUSCULAR VOLUME 87.5 fl (80.0-96.0); MONO # 0.8 10^3/uL (0.0-0.8); MONO % 12.7 % (0.0-5.0); NEUTROPHILS % 64.4 % (36.0-66.0); PLATELET COUNT, AUTOMATED 244 10^3/uL (150-450); RED BLOOD COUNT 4.49 10^6/uL (4.30-6.10); WHITE BLOOD COUNT 6.1 10^3/uL (4.0-10.0)
[2019-01-07] MEDS: VANCOMYCIN HCL 750 MG, VIAL MATE ADAPTER 1 EACH in D5W 250 ML IV SCH ×2 (05:37→17:29)
[2019-01-07] MEDS: LEVOTHYROXINE 75MCG TABLET (0.075MG) PO SCH (05:37)
[2019-01-07 05:59] LABS: BLOOD UREA NITROGEN 18 MG/DL (7-18); CALCIUM LEVEL 8.8 MG/DL (8.8-10.2); CARBON DIOXIDE LEVEL 31 MEQ/L (21-32); CHLORIDE LEVEL 103 MEQ/L (98-107); CREATININE FOR GFR 0.96 MG/DL (0.70-1.30); GLOMERULAR FILTRATION RATE > 60.0 (>35); GLUCOSE, FASTING 97 MG/DL (70-100); MAGNESIUM LEVEL 1.9 MG/DL (1.8-2.4); PHOSPHORUS LEVEL 3.6 MG/DL (2.5-4.9); SODIUM LEVEL 139 MEQ/L (136-145); VANCOMYCIN LEVEL TROUGH 15.9 UG/ML (10.0-20.0)
[2019-01-07 06:00] VITALS: BP 110/57
--- NOTE | 2019-01-07 06:07 | PHACANCOPD ---
PHARMACY VANCOMYCIN DOSING Pt Demographics Demographics Patient Age:78 , Weight:81.810 , Gender: male Adjusted Body Weight Date: 01/03/19, Adjusted Body Weight: Kg Vancomycin Vancomycin indication: VERTEBRAL OSTEOMYELITIS Vancomycin Target Ranges: 15-20 mcg/ml Vancomycin Load Y/N: Yes Load Dose Date Time Vancomycin Load Dose: 1750mg Date: 01/03/19 Time: 1800 Vancomycin Dose Date: 01/03/19. Current Vancomycin Dose: [1250mg IV Q12H] Intermittent Dosing?: No Labs Micro Microbiology 01/03/19 Blood Culture - Preliminary, Resulted No Growth after 72 hours. All specime... 01/03/19 Gram Stain - Final, Complete 01/03/19 Body Fluid Culture - Final, Complete 01/03/19 MRSA Screen - Final, Complete 01/03/19 Anaerobic Culture - Final, Complete Creatinine Clearance Date:01/03/19. Est Creatinine Clearance: [~76ml/min]. Pending Labs Vancomycin trough scheduled 01/05/19 @0500 to be drawn with AM labs prior to the 4th dose Assessment and Plan Maintaining Current Dose?: Yes Reason for dose change: No Dose Change Pharmacist Note Pharmacist Note Date: 01/07/19. Pharmacist note:Vancomycin trough drawn this morning@5:20 reported as 15.9-SCR=0.96-without significant change-will continue current regimen of Vancomycin 1250mg IV [id number] Date: 01/05/19. Pharmacist note:Vancomycin trough level drawn this morming@5;18 reported as 16-will maintain current 1250mg [id number] dosing Date: 01/03/19. Pharmacist note: Day #1 empiric vancomycin therapy initiated with a 1750mg loading dose, followed by a maintenance regimen of 1250mg IV Q12H for the treatment of L2-L3 vertebral osteomyelitis - aiming for a goal trough of 15- 20mcg/ml. WBC, ESR, and LA are WNL. CRP is currently elevated and the patient is afebrile. CXR today also revealed "Focal density in the right upper lobe as described, right upper lobe infiltrate/mass versus right first rib artifact." Blood cultures, MRSA screen, and aspirate culture are currently pending. No PMH of MRSA or vanco use here at [facility]. A vancomycin trough has been scheduled to be drawn 01/05/19 at 0500 with AM labs, prior to the 4th dose. We will continue to monitor and make dose adjustments if needed. [facility] Jan 07, 2019 06:07
[2019-01-07] MEDS: VANCOMYCIN HCL 500 MG in D5W MINI-BAG PLUS 100 ML IV SCH ×2 (07:00→18:33)
[2019-01-07] MEDS: ACETAMINOPH W/CODEINE #3 TAB UD PO PRN ×3 (07:48→18:34)
[2019-01-07] MEDS: TUDORZA PRESSAIR 400 MCG INH SCH ×2 (08:05→20:15)
[2019-01-07] MEDS: amLODIPine 5 MG TAB PO SCH (08:39)
[2019-01-07] MEDS: GABAPENTIN 100 MG CAP PO SCH ×2 (08:39→20:07)
[2019-01-07] MEDS: OMEPRAZOLE 20 MG CAP PO SCH (08:39)
[2019-01-07] MEDS: DYAZIDE 37.5/25 CAP (TRIAM/HCTZ) PO SCH (08:40)
[2019-01-07] MEDS: ASPIRIN 81 MG ENTERIC TAB PO SCH (08:40)
[2019-01-07] MEDS: SINEMET 25-100 MG TAB PO SCH ×3 (08:40→20:07)
[2019-01-07 14:00] VITALS: BP 110/76
[2019-01-07] MEDS ORDERED: ISOVUE-370 76% 100ML VIAL (Q9967) As Ordered ONE (14:56)
--- NOTE | 2019-01-07 17:19 | REP ---
CT chest with contrast: History: Right upper lobe abnormality on chest x-ray. Previous radiation therapy. Comparison chest x-ray is from January 03, 2019. Comparison CT study of the chest is dated October 29, 2007. CT contrast dose: 75 ml of intravenous Isovue [address] findings: There is no evidence of hilar or mediastinal mass or adenopathy. No pleural or pericardial effusion is seen. There is a pattern of bilateral apical pleuroparenchymal fibrosis in the anterior aspect of the lung apices on both sides. This could be post radiation fibrosis. No pulmonary mass lesion is seen. The lung lee are otherwise clear. No adrenal lesion is observed. A small accessory splenule is seen. The intrahepatic and extrahepatic biliary tree is somewhat prominent. The common bile duct measures 13 mm in greatest diameter. On the 2007 CT study the CBD measured 11 mm. No gallstone is seen. No choledocholithiasis is noted by CT. The main pancreatic duct is also mildly prominent. There is more colonic diverticulosis noted in the upper abdomen. Parapelvic renal cysts are observed. The patient has known destructive diskitis changes are noted at the bottom edge of the imaging field of view. No other bony destructive lesion is seen. 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 Otherwise no active cardiopulmonary disease. Somewhat prominent biliary and pancreatic ducts as above. Uncertain etiology. Electronically Signed by Neeraj Moreno MD 01/08/2019 08:56 A
--- NOTE | 2019-01-07 19:21 | IPNPDOC ---
Subjective Date Seen The patient was seen on 01/07/19. Subjective Chief Complaint/HPI The patient reports some back pain that is positional, better at times and worse in certain positions. Denies any associated lower extremity numbness or weakness. No bladder/bowel incontinence. Denies any chest shortness of breath. No cough/fever/chills or sweats. No nausea or vomiting. Tolerating oral intake Objective Physical Examination General Exam: Positive: Alert, Cooperative, No Acute Distress, Other (Lying in bed) Eye Exam: Positive: PERRLA ENT Exam: Positive: Mucous membr. moist/pink Chest Exam: Positive: Clear to auscultation, Normal air movement; Negative: Rales, Rhonchi, Wheezing Heart Exam: Positive: Rate Normal, Regular Rhythm, Normal S1, Normal S2 Abdomen Exam: Positive: Soft; Negative: Tenderness Neuro Exam: Positive: Other (strength 5 over 5 in bilateral ankles to dorsi and plantar flexion. Intact fine touch.) RAD Interpretation STUDY: CT Chest Rad Actions: Other Rad Comments: (biapical fibrosis consistent with postradiation change.) Assessment /Plan Assessment L2-3 suspected osteomyelitis and discitis: -Status post biopsy for pathology and micro-by interventional radiology on 01/03/19 -No growth aerobically/anaerobically on aspirate. Pathology pending. -Discussed with IDDr. Sawyer -Patient had received BCG treatment for bladder cancersuspicion is that patient may have tuberculous infection of the spine -Added AFB stain and culture to the specimen collected previously -Ct vancomycin Day 4 and Zosyn Day 4. -Blood cultures - no growth @ 72 hrs -Echocardiogram did not show any obvious intracardiac mass. -Continue Tylenol with codeine for pain control, gabapentin -Lumbar brace with activitymay leave brace off at rest or when sleeping. Weightbearing as tolerated with walker and brace. -Ct PT/OT Abnormal chest x-ray: -Chest CT shows by apical fibrosis pattern suggestive of postradiation change. Hypertension: -Continue quinapril, amlodipine (as a substitute for felodipine), triamtereneHCTZ -Blood pressure is well controlled Hyperlipidemia: -Continue atorvastatin Tremors: -Continue carbidopalevodopa COPD, not in exacerbation: -Continue Tudorza if able to bring med in. Prn Ventolin Hypothyroidism: -Continue levothyroxine DVT PPx: -SCDs, enoxaparin Plan/VTE VTE Prophylaxis Ordered?: Yes VTE Exclusion Pharmacological: Other (Needs CT guided L2-3 biopsy) VS, I&O, 24H, Fishbone Vital Signs/I&O Vital Signs Date Time Temp Pulse Resp B/P (MAP) Pulse Ox O2 Delivery O2 Flow Rate FiO2 01/07/19 18:34 18 01/07/19 14:00 97.9 87 110/76 (87) 95 I&O- Last 24 Hours up to 6 AM 01/07/19 06:00 Intake Total 1715 ml Output Total 3345 ml Balance -1630 ml Laboratory Data 24H LABS Laboratory Tests 2 01/07/19 05:20: Immature Granulocyte % (Auto) 0.5, White Blood Count 6.1, Red Blood Count 4.49, Hemoglobin 13.5, Hematocrit 39.3L, Mean Corpuscular Volume 87.5, Mean Corpuscular Hemoglobin 30.1, Mean Corpuscular Hemoglobin Concent 34.4, Red Cell Distribution Width 13.1, Platelet Count 244, Neutrophils (%) (Auto) 64.4, Lymphocytes (%) (Auto) 19.4L, Monocytes (%) (Auto) 12.7H, Eosinophils (%) (Auto) 2.3, Basophils (%) (Auto) 0.7, Neutrophils # (Auto) 4.0, Lymphocytes # (Auto) 1.2L, Monocytes # (Auto) 0.8, Eosinophils # (Auto) 0.1, Basophils # (Auto) 0.0, Nucleated Red Blood Cells % (auto) 0.0, Anion Gap 5L, Glomerular Filtration Rate > 60.0, Blood Urea Nitrogen 18, Creatinine 0.96, Sodium Level 139, Potassium Level 4.0, Chloride Level 103, Carbon Dioxide Level 31, Calcium Level 8.8, Phosphorus Level 3.6, Magnesium Level 1.9, Vancomycin Level Trough 15.9 CBC/BMP Laboratory Tests 01/07/19 05:20 Red Blood Count 4.49, Mean Corpuscular Volume 87.5, Mean Corpuscular Hemoglobin 30.1, Mean Corpuscular Hemoglobin Concent 34.4, Red Cell Distribution Width 13.1, Neutrophils (%) (Auto) 64.4, Lymphocytes (%) (Auto) 19.4 L, Monocytes (%) (Auto) 12.7 H, Eosinophils (%) (Auto) 2.3, Basophils (%) (Auto) 0.7, Neutrophils # (Auto) 4.0, Lymphocytes # (Auto) 1.2 L, Monocytes # (Auto) 0.8, Eosinophils # (Auto) 0.1, Basophils # (Auto) 0.0, Calcium Level 8.8 Microbiology Microbiology 01/03/19 Blood Culture - Preliminary, Resulted No Growth after 72 hours. All specime... 01/03/19 Acid Fast Stain, Received Pending 01/03/19 Mycobacterial Culture, Received Pending 01/03/19 Gram Stain - Final, Complete 01/03/19 Body Fluid Culture - Final, Complete 01/03/19 MRSA Screen - Final, Complete 01/03/19 Anaerobic Culture - Final, Complete MAITE FRANCO MD Jan 07, 2019 19:21
[2019-01-07] MEDS: ATORVASTATIN 20 MG TAB PO SCH (20:07)
[2019-01-07] MEDS: TAMSULOSIN 0.4 MG CAP PO SCH (20:07)
[2019-01-07] MEDS: QUINAPRIL 20 MG TAB PO SCH (20:10)
[2019-01-07 22:00] VITALS: BP 125/76
[2019-01-08] MEDS: PIPERACILLIN/TAZOBACTAM SOD 3.375 GM in D5W MINI-BAG PLUS 50 ML IV SCH ×3 (02:36→14:13)
[2019-01-08] MEDS: ACETAMINOPH W/CODEINE #3 TAB UD PO PRN ×4 (02:38→20:38)
[2019-01-08] MEDS: LEVOTHYROXINE 75MCG TABLET (0.075MG) PO SCH (05:22)
[2019-01-08] MEDS: VANCOMYCIN HCL 750 MG, VIAL MATE ADAPTER 1 EACH in D5W 250 ML IV SCH ×2 (05:22→17:14)
[2019-01-08 06:00] VITALS: BP 82/66
[2019-01-08 06:05] VITALS: BP 119/88
[2019-01-08 06:50] LABS: BASO % 0.5 % (0.0-1.0); EOS # 0.2 10^3/uL (0.0-0.50); EOS % 2.9 % (0.0-3.0); HEMATOCRIT 39.7 % (42.0-52.0); HEMOGLOBIN 13.7 g/dl (13.5-17.5); LYMPH # 1.1 10^3/uL (1.5-4.5); MEAN CORPUSCULAR HGB CONC 34.5 g/dl (32.0-36.5); MEAN CORPUSCULAR VOLUME 86.9 fl (80.0-96.0); MONO # 0.7 10^3/uL (0.0-0.8); MONO % 12.3 % (0.0-5.0); NEUTROPHILS # 3.9 10^3/uL (1.8-7.7); NEUTROPHILS % 65.8 % (36.0-66.0); PLATELET COUNT, AUTOMATED 264 10^3/uL (150-450); RED BLOOD COUNT 4.57 10^6/uL (4.30-6.10); WHITE BLOOD COUNT 5.9 10^3/uL (4.0-10.0)
[2019-01-08] MEDS: VANCOMYCIN HCL 500 MG in D5W MINI-BAG PLUS 100 ML IV SCH (06:54)
[2019-01-08 07:07] LABS: BLOOD UREA NITROGEN 17 MG/DL (7-18); CALCIUM LEVEL 9.2 MG/DL (8.8-10.2); CARBON DIOXIDE LEVEL 31 MEQ/L (21-32); CHLORIDE LEVEL 101 MEQ/L (98-107); CREATININE FOR GFR 0.89 MG/DL (0.70-1.30); GLOMERULAR FILTRATION RATE > 60.0 (>35); GLUCOSE, FASTING 117 MG/DL (70-100); MAGNESIUM LEVEL 2.1 MG/DL (1.8-2.4); PHOSPHORUS LEVEL 3.1 MG/DL (2.5-4.9); POTASSIUM SERUM 3.6 MEQ/L (3.5-5.1); SODIUM LEVEL 138 MEQ/L (136-145)
[2019-01-08] MEDS: GABAPENTIN 100 MG CAP PO SCH ×2 (08:10→20:37)
[2019-01-08] MEDS: amLODIPine 5 MG TAB PO SCH (08:10)
[2019-01-08] MEDS: DYAZIDE 37.5/25 CAP (TRIAM/HCTZ) PO SCH (08:10)
[2019-01-08] MEDS: OMEPRAZOLE 20 MG CAP PO SCH (08:10)
[2019-01-08] MEDS: ASPIRIN 81 MG ENTERIC TAB PO SCH (08:10)
[2019-01-08] MEDS: SINEMET 25-100 MG TAB PO SCH ×3 (08:10→20:37)
[2019-01-08] MEDS: TUDORZA PRESSAIR 400 MCG INH SCH ×2 (09:00→21:00)
[2019-01-08] MEDS ORDERED: ENOXAPARIN 40 MG/0.4 ML SYRINGE (J1650) SC SCH (09:00)
[2019-01-08 14:01] VITALS: BP 103/57
[2019-01-08 18:27] LABS: C REACTIVE PROTEIN QUANTITATIV 3.39 MG/DL (0.00-0.30)
--- NOTE | 2019-01-08 20:08 | IPNPDOC ---
Subjective Date Seen The patient was seen on 01/08/19. 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 However, he reports he has not been out of the bed yet. Denies any problems with chest pain/shortness of breath. No nausea or vomiting. Tolerating oral intake. Urinating okay and having bowel movements okay. Objective Physical Examination General Exam: Positive: Alert, Cooperative, No Acute Distress, Other (Lying in bed) Eye Exam: Positive: PERRLA ENT Exam: Positive: Mucous membr. moist/pink Chest Exam: Positive: Clear to auscultation; Negative: Rales, Rhonchi, Wheezing Heart Exam: Positive: Rate Normal, Regular Rhythm, Normal S1, Normal S2 Abdomen Exam: Positive: Soft; Negative: Tenderness Neuro Exam: Positive: Other (strength 5 over 5 in bilateral ankles to dorsi and plantar flexion. Intact fine touch.) Assessment /Plan Assessment L2-3 suspected osteomyelitis and discitis: -Status post biopsy for pathology and micro-by interventional radiology on -No growth aerobically/anaerobically on aspirate. Pathology showed acellular specimen -Discussed with IDDr. Sawyer - plan is for repeat IR guided biopsy on -Patient had received BCG treatment for bladder cancersuspicion is that patient may have tuberculous infection of the spine -Added AFB stain and culture to the specimen collected previously as well -Was initially treated with IV vancomycin and Zosynthese are being discontinued by ID today -Blood cultures - no growth -Echocardiogram did not show any obvious intracardiac mass. -Continue Tylenol with codeine for pain control, gabapentin -Lumbar brace with activitymay leave brace off at rest or when sleeping. Weightbearing as tolerated with walker and brace. -Ct PT/OT Abnormal chest x-ray: -Chest CT shows by apical fibrosis pattern suggestive of postradiation change. Hypertension: -Continue quinapril, amlodipine (as a substitute for felodipine), triamtereneHCTZ -Blood pressure is well controlled Hyperlipidemia: -Continue atorvastatin Tremors: -Continue carbidopalevodopa COPD, not in exacerbation: -Continue Tudorza if able to bring med in. Prn Ventolin Hypothyroidism: -Continue levothyroxine DVT PPx: -SCDs. Holding off on enoxaparin as well as plan for IR guided biopsy on . Plan/VTE VTE Prophylaxis Ordered?: Yes VTE Exclusion Pharmacological: Other (Needs CT guided L2-3 biopsy) VS, I&O, 24H, Fishbone Vital Signs/I&O Vital Signs Date Time Temp Pulse Resp B/P (MAP) Pulse Ox O2 Delivery O2 Flow Rate FiO2 01/08/19 14:01 97.0 77 14 103/57 (72) 92 I&O- Last 24 Hours up to 6 AM 01/08/19 06:00 Intake Total 1980 ml Output Total 2350 ml Balance -370 ml Laboratory Data 24H LABS Laboratory Tests 2 01/08/19 06:17: Immature Granulocyte % (Auto) 0.5, White Blood Count 5.9, Red Blood Count 4.57, Hemoglobin 13.7, Hematocrit 39.7L, Mean Corpuscular Volume 86.9, Mean Corpuscular Hemoglobin 30.0, Mean Corpuscular Hemoglobin Concent 34.5, Red Cell Distribution Width 13.2, Platelet Count 264, Neutrophils (%) (Auto) 65.8, Lymphocytes (%) (Auto) 18.0L, Monocytes (%) (Auto) 12.3H, Eosinophils (%) (Auto) 2.9, Basophils (%) (Auto) 0.5, Neutrophils # (Auto) 3.9, Lymphocytes # (Auto) 1.1L, Monocytes # (Auto) 0.7, Eosinophils # (Auto) 0.2, Basophils # (Auto) 0.0, Nucleated Red Blood Cells % (auto) 0.0, Anion Gap 6L, Glomerular Filtration Rate > 60.0, Blood Urea Nitrogen 17, Creatinine 0.89, Sodium Level 138, Potassium Level 3.6, Chloride Level 101, Carbon Dioxide Level 31, Calcium Level 9.2, Phosphorus Level 3.1, Magnesium Level 2.1, C-Reactive Protein, Quantitative 3.39H CBC/BMP Laboratory Tests 01/08/19 06:17 Red Blood Count 4.57, Mean Corpuscular Volume 86.9, Mean Corpuscular Hemoglobin 30.0, Mean Corpuscular Hemoglobin Concent 34.5, Red Cell Distribution Width 13.2, Neutrophils (%) (Auto) 65.8, Lymphocytes (%) (Auto) 18.0 L, Monocytes (%) (Auto) 12.3 H, Eosinophils (%) (Auto) 2.9, Basophils (%) (Auto) 0.5, Neutrophils # (Auto) 3.9, Lymphocytes # (Auto) 1.1 L, Monocytes # (Auto) 0.7, Eosinophils # (Auto) 0.2, Basophils # (Auto) 0.0, Calcium Level 9.2 Microbiology Microbiology 01/03/19 Blood Culture - Final, Complete NO GROWTH AFTER 5 DAYS 01/03/19 Acid Fast Stain, Received Pending 01/03/19 Mycobacterial Culture, Received Pending 01/03/19 Gram Stain - Final, Complete 01/03/19 Body Fluid Culture - Final, Complete 01/03/19 MRSA Screen - Final, Complete 01/03/19 Anaerobic Culture - Final, Complete MAITE FRANCO MD Jan 08, 2019 20:08
[2019-01-08] MEDS: TAMSULOSIN 0.4 MG CAP PO SCH (20:37)
[2019-01-08] MEDS: ATORVASTATIN 20 MG TAB PO SCH (20:37)
[2019-01-08] MEDS: QUINAPRIL 20 MG TAB PO SCH (20:37)
[2019-01-08 20:57] LABS: ERYTHROCYTE SEDIMENTATION RATE 36 mm/hr (0-20)
[2019-01-08 22:00] VITALS: BP 134/61
--- NOTE | 2019-01-08 23:07 | CR.PDOC ---
General Date of Consultation: Jan 08, 2019 Consultation Oni is an 78 year old gentlemen who presented to the ED as direct admission from his orthopedic office with the complaint of insidious onset of excruciating low back pain. He stated the back pain began as an ache and over the course of 6 weeks progressed to severe pain sometimes affecting his ability to ambulate, it would radiate to the back and inner portion of his left left and stop before the knee. 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 He states he has received BCG treatment total 12 treatments in the past for bladder cancer, with last treatment May 2018, and last cystoscopy in late Sep 2018. He denies being ill otherwise and describes himself as generally healthy, he has not had any recent fevers, night sweats, chills or muscle aches, no recent travel or sick contacts, no n/v or diarrhea nor abdominal pain, no CP or trouble breathing. He states he was treated with radiation therapy around 1999 for non-hodgkins lymphoma and has been in remission ever since. He did have MRI of his low back in [facility] where he presented for the LBP, that revealed L2-L3 discitis. He was apparently given PO steroids for the LBP but this did not help, he was seen in the orthopedic office after his MRI by Kwabena Willams and it was decided that he warranted admission at that point. He recently underwent left endarterectomy December 05, 2018 but denies any other recent surgeries, he denies any skin rashes or abrasions/lacerations. No invasive procedures EGD, colonoscopy. Last Cysto was 12 weeks ago no UTI history ALLERGIES: Please see below. HOME MEDICATIONS: Please see below. PAST MEDICAL HISTORY: COPD, non-hodkins lymphoma s/p chemothearpy and radiation, bladder cancer s/p resection & BCG treatment, BPH, HTN, tremor, hypothyroidism essential tremor SURGICAL HISTORY: colonoscopy, left endarterectomy November 2018, b/l cataract surgery, cystoscopy procedures with most recent in Sep 2018, TURBT REVIEW OF SYSTEMS: CONSTITUTIONAL: no fevers, muscle aches or chills, no changes in weight HEENT: no change in vision CARDIOVASCULAR: no chest pain RESPIRATORY: no cough or SOB GENITOURINARY: no pain with urination MUSCULOSKELETAL: describes painful LBP GASTROINTESTINAL: no diarrhea or constipation SKIN: no skin rashes or skin abrasions or breaks in skin PHYSICAL EXAMINATION: VITAL SIGNS: Please see below. GENERAL APPEARANCE: pleasant 78 year old man, conversant, comfortable in bed HEENT: no oral lesions, NCAT, EOMI RESPIRATORY: no wheezing, rales or rhonchi appreciated CARDIOVASCULAR: normal s1 and s2, no murmurs rubs or gallops ABDOMEN: soft, no hepatosplenomegaly, nabsx4, no pain to palpation, no distension, no rebound ridgity or guarding EXTREMITIES: no cyanosis, mottling or edema NEUROLOGICAL: strength preserved in b/l LE LABORATORY DATA: Please see below. ASSESSMENT/PLAN: This is an 78 year old man who presented with the complaint of LBP and was fount to have L2, L3 discitis. 1. L2,L3 discitis - The patient has history of BCG treatment for his bladder cancer, this can sometimes rarely go to the spine, given the indolent course of his complaints this could very well be the etiology of his discitis as his cultures have been negative, however there is a fair amount of discitis cases that are culture negative. He has been treated with vancomycin and zosyn, his blood cultures x1 have been negative to date, he has AFB and mycobacterial cultures pending, we have reviewed the case again with radiology who will attempt to perform another CT-guided biopsy of the L2, L3 region for more sample and hopefully have some material/cellular material for pathology. Unfortunately to treat him right now at his advanced age for TB would carry possible serious side effects such as liver toxicity from three drug regime of ethambutol, rifampin and isoniazid, especially since we do not have a confirmation that this is indeed TB of the spine. He did have ECHO performed this visit that was negative for intracardiac mass or thrombus. We will therefore stop antibiotics for right now and plan on getting another biopsy with IR on of this week, we would recommend pain control for him until that point, in fact he could go home after his biopsy with a good pain control regime and await the results. If they do come back positive for TB then he would be started on the three drug combination as outlined above. For now, treat the patients pain, he will have CT guided bx. come . We have put in the order and appropriate tests to be done with his biopsy. Vital Signs/I&O Vital Signs Date Time Temp Pulse Resp B/P (MAP) Pulse Ox O2 Delivery O2 Flow Rate FiO2 01/08/19 20:38 18 01/08/19 20:37 134/61 01/08/19 14:01 97.0 77 92 I&O- Last 24 Hours up to 6 AM 01/08/19 06:00 Intake Total 1980 ml Output Total 2350 ml Balance -370 ml Laboratory Data Labs 24H Laboratory Tests 2 01/08/19 06:17: Immature Granulocyte % (Auto) 0.5, White Blood Count 5.9, Red Blood Count 4.57, Hemoglobin 13.7, Hematocrit 39.7L, Mean Corpuscular Volume 86.9, Mean Corpuscular Hemoglobin 30.0, Mean Corpuscular Hemoglobin Concent 34.5, Red Cell Distribution Width 13.2, Platelet Count 264, Neutrophils (%) (Auto) 65.8, Lymphocytes (%) (Auto) 18.0L, Monocytes (%) (Auto) 12.3H, Eosinophils (%) (Auto) 2.9, Basophils (%) (Auto) 0.5, Neutrophils # (Auto) 3.9, Lymphocytes # (Auto) 1.1L, Monocytes # (Auto) 0.7, Eosinophils # (Auto) 0.2, Basophils # (Auto) 0.0, Nucleated Red Blood Cells % (auto) 0.0, Erythrocyte Sedimentation Rate 36H, Anion Gap 6L, Glomerular Filtration Rate > 60.0, Blood Urea Nitrogen 17, Creatinine 0.89, Sodium Level 138, Potassium Level 3.6, Chloride Level 101, Carbon Dioxide Level 31, Calcium Level 9.2, Phosphorus Level 3.1, Magnesium Level 2.1, C-Reactive Protein, Quantitative 3.39H CBC/BMP Laboratory Tests 01/08/19 06:17 Red Blood Count 4.57, Mean Corpuscular Volume 86.9, Mean Corpuscular Hemoglobin 30.0, Mean Corpuscular Hemoglobin Concent 34.5, Red Cell Distribution Width 13.2, Neutrophils (%) (Auto) 65.8, Lymphocytes (%) (Auto) 18.0 L, Monocytes (%) (Auto) 12.3 H, Eosinophils (%) (Auto) 2.9, Basophils (%) (Auto) 0.5, Neutrophils # (Auto) 3.9, Lymphocytes # (Auto) 1.1 L, Monocytes # (Auto) 0.7, Eosinophils # (Auto) 0.2, Basophils # (Auto) 0.0, Calcium Level 9.2 Microbiology Microbiology 01/03/19 Blood Culture - Final, Complete NO GROWTH AFTER 5 DAYS 01/03/19 Acid Fast Stain, Received Pending 01/03/19 Mycobacterial Culture, Received Pending 01/03/19 Gram Stain - Final, Complete 01/03/19 Body Fluid Culture - Final, Complete 01/03/19 MRSA Screen - Final, Complete 01/03/19 Anaerobic Culture - Final, Complete Allergies Coded Allergies: No Known Allergies (Unverified , 07/24/17) Home Medications Scheduled Aclidinium Rosebud (Tudorza Pressair) 400 Mcg Aer.pow.ba, 400 MCG INH BID, (Reported) Aspirin (Aspir-Low) 81 Mg Tablet.dr, 81 MG PO DAILY, (Reported) Atorvastatin Calcium (Atorvastatin Calcium) 20 Mg Tablet, 20 MG PO QHS, (Reported) Carbidopa/Levodopa (Carbidopa-Levodopa 25-100 Tab) 1 Each Tablet, 1 TAB PO TID, (Reported) TAKES SUPERVISOR MODEL MAKING (WITH SYNTHROID), MID-MORNING WITH OTHER AM MEDS, AND WITH EVENING MEDS AT BEDTIME Felodipine (Felodipine ER) 5 Mg Tab.er.24h, 5 MG PO DAILY, (Reported) Gabapentin (Gabapentin) 100 Mg Capsule, 100 MG PO BID, (Reported) Levothyroxine Sodium (Synthroid) 75 Mcg Tablet, 75 MCG PO QAM, (Reported) Multivitamin (Multivitamins) 1 Each Tablet, 1 TAB PO DAILY, (Reported) Omeprazole (Omeprazole) 20 Mg Capsule.dr, 20 MG PO DAILY, (Reported) Quinapril HCl (Quinapril HCl) 40 Mg Tablet, 20 MG PO QHS, (Reported) Tamsulosin HCl (Flomax) 0.4 Mg Capsule, 0.4 MG PO QPM, (Reported) Triamterene/Hydrochlorothiazid (Triamterene-Hctz 37.5-25 mg Tb) 1 Each Tablet, 1 TAB PO DAILY, (Reported) Scheduled PRN Acetaminophen with Codeine (Acetaminophen-Cod #3 Tablet) 1 Each Tablet, 1 TAB PO Q4H PRN for PAIN for 7 Days, #18 Ibuprofen (Ibu-200) 200 Mg Tablet, 200 MG PO Q6H PRN for PAIN, (Reported) GME ATTESTATION GME ATTESTATION My faculty preceptor for this patient encounter was physically present during the encounter and was fully available. All aspects of the patient interview, examination, medical decision making process, and medical care plan development were reviewed and approved by the faculty preceptor. The faculty preceptor is aware and concurs with the plan as stated in the body of this note and will attest to such by his/her cosignature. SLY ALAMO DO Jan 08, 2019 23:07 Vishnu Sawyer MD Jan 14, 2019 15:08
[2019-01-09 00:06] LABS: ASPERGILLUS FLAVUS ABY Negative (Neg:<1:1); ASPERGILLUS FUMIGATUS ABY Negative (Neg:<1:1); ASPERGILLUS NIGER ABY Negative (Neg:<1:1); BLASTOMYCES ABY Negative (Neg:<1:1); HISTOPLASMA ABY Negative (Neg:<1:1)
[2019-01-09] MEDS: ACETAMINOPH W/CODEINE #3 TAB UD PO PRN ×5 (02:10→22:39)
[2019-01-09 06:00] VITALS: BP 115/70
[2019-01-09 06:38] LABS: BASO % 0.6 % (0.0-1.0); EOS # 0.1 10^3/uL (0.0-0.50); EOS % 2.1 % (0.0-3.0); HEMATOCRIT 40.9 % (42.0-52.0); HEMOGLOBIN 13.7 g/dl (13.5-17.5); LYMPH # 1.1 10^3/uL (1.5-4.5); LYMPH % 17.4 % (24.0-44.0); MEAN CORPUSCULAR HGB CONC 33.5 g/dl (32.0-36.5); MEAN CORPUSCULAR VOLUME 86.7 fl (80.0-96.0); MONO # 0.9 10^3/uL (0.0-0.8); NEUTROPHILS # 4.3 10^3/uL (1.8-7.7); PLATELET COUNT, AUTOMATED 279 10^3/uL (150-450); RED BLOOD COUNT 4.72 10^6/uL (4.30-6.10); WHITE BLOOD COUNT 6.6 10^3/uL (4.0-10.0)
[2019-01-09 07:00] LABS: BLOOD UREA NITROGEN 16 MG/DL (7-18); CALCIUM LEVEL 9.2 MG/DL (8.8-10.2); CARBON DIOXIDE LEVEL 31 MEQ/L (21-32); CHLORIDE LEVEL 102 MEQ/L (98-107); GLOMERULAR FILTRATION RATE > 60.0 (>35); GLUCOSE, FASTING 95 MG/DL (70-100); MAGNESIUM LEVEL 2.1 MG/DL (1.8-2.4); PHOSPHORUS LEVEL 2.9 MG/DL (2.5-4.9); POTASSIUM SERUM 4.5 MEQ/L (3.5-5.1); SODIUM LEVEL 137 MEQ/L (136-145)
[2019-01-09] MEDS: LEVOTHYROXINE 75MCG TABLET (0.075MG) PO SCH (07:01)
[2019-01-09] MEDS: TUDORZA PRESSAIR 400 MCG INH SCH ×2 (07:59→19:51)
[2019-01-09] MEDS: DYAZIDE 37.5/25 CAP (TRIAM/HCTZ) PO SCH (10:03)
[2019-01-09] MEDS: amLODIPine 5 MG TAB PO SCH (10:03)
[2019-01-09] MEDS: ASPIRIN 81 MG ENTERIC TAB PO SCH (10:03)
[2019-01-09] MEDS: OMEPRAZOLE 20 MG CAP PO SCH (10:03)
[2019-01-09] MEDS: GABAPENTIN 100 MG CAP PO SCH ×2 (10:03→19:52)
[2019-01-09] MEDS: SINEMET 25-100 MG TAB PO SCH ×3 (10:03→19:52)
--- NOTE | 2019-01-09 11:30 | IPNPDOC ---
Text Note Date of Service The patient was seen on 01/09/19. NOTE Subjective: Patient seen and examined at bedside. No acute overnight events reported. No new medical complaints. No back pain at rest, but severe pain with movement. Objective: General: NAD, lying comfortably in bed, elderly HEENT: NC/AT, EOMI Lungs: CTA B/L Heart: +S1S2, RRR Abd: soft, NT, +BS A/P: 78 yo male for suspected OM/discitis #L2-3 suspected osteomyelitis and discitis: -Status post biopsy for pathology and micro-by interventional radiology on 01/03/19 -No growth aerobically/anaerobically on aspirate. Pathology showed acellular specimen -previously discussed with REHANDrDiana Sawyer - plan is for repeat IR guided biopsy on -Patient had received BCG treatment for bladder cancersuspicion is that patient may have tuberculous infection of the spine -Added AFB stain and culture to the specimen collected previously as well -Was initially treated with IV vancomycin and Zosyn discontinued by ID -Blood cultures - no growth -Echocardiogram did not show any obvious intracardiac mass. -Continue Tylenol with codeine for pain control, gabapentin -Lumbar brace with activitymay leave brace off at rest or when sleeping. Weightbearing as tolerated with walker and brace. -Ct PT/OT #Abnormal chest x-ray: -Chest CT shows by apical fibrosis pattern suggestive of postradiation change. #Hypertension: -Continue quinapril, amlodipine (as a substitute for felodipine), triamtereneHCTZ -Blood pressure is well controlled #Hyperlipidemia: -Continue atorvastatin #Tremors: -Continue carbidopalevodopa #COPD, not in exacerbation: -Continue Tudorza if able to bring med in. Prn Ventolin #Hypothyroidism: -Continue levothyroxine #DVT PPx: -SCDs. Holding off on enoxaparin as well as plan for IR guided biopsy on . Dispo: pending IR biopsy tomorrow, continue PT/OT, PFS for home safety A-FIB/CHADSVASC A-FIB History Current/History of A-Fib/PAF?: No VS,Fishbone, I+O VS, Fishbone, I+O Laboratory Tests 01/09/19 06:21 Red Blood Count 4.72, Mean Corpuscular Volume 86.7, Mean Corpuscular Hemoglobin 29.0, Mean Corpuscular Hemoglobin Concent 33.5, Red Cell Distribution Width 13.1, Neutrophils (%) (Auto) 65.0, Lymphocytes (%) (Auto) 17.4 L, Monocytes (%) (Auto) 14.0 H, Eosinophils (%) (Auto) 2.1, Basophils (%) (Auto) 0.6, Neutrophils # (Auto) 4.3, Lymphocytes # (Auto) 1.1 L, Monocytes # (Auto) 0.9 H, Eosinophils # (Auto) 0.1, Basophils # (Auto) 0.0, Calcium Level 9.2 Vital Signs Date Time Temp Pulse Resp B/P (MAP) Pulse Ox O2 Delivery O2 Flow Rate FiO2 01/09/19 10:03 70 115/70 01/09/19 07:41 20 01/09/19 06:00 98.5 97 I&O- Last 24 Hours up to 6 AM 01/09/19 06:00 Intake Total 1535 ml Output Total 1820 ml Balance -285 ml SABINA LEON MD Jan 09, 2019 11:30
[2019-01-09 14:00] VITALS: BP 118/61
[2019-01-09] MEDS: TAMSULOSIN 0.4 MG CAP PO SCH (19:52)
[2019-01-09] MEDS: QUINAPRIL 20 MG TAB PO SCH (19:52)
[2019-01-09] MEDS: ATORVASTATIN 20 MG TAB PO SCH (19:52)
[2019-01-09 22:00] VITALS: BP 109/67
[2019-01-10] MEDS: ACETAMINOPH W/CODEINE #3 TAB UD PO PRN ×4 (03:24→21:55)
[2019-01-10] MEDS: LEVOTHYROXINE 75MCG TABLET (0.075MG) PO SCH (05:45)
[2019-01-10 06:00] VITALS: BP 116/72
[2019-01-10 08:04] LABS: BASO % 0.5 % (0.0-1.0); EOS # 0.1 10^3/uL (0.0-0.50); EOS % 1.6 % (0.0-3.0); HEMATOCRIT 40.9 % (42.0-52.0); HEMOGLOBIN 13.9 g/dl (13.5-17.5); MEAN CORPUSCULAR HEMOGLOBIN 29.5 pg (27.0-33.0); MEAN CORPUSCULAR VOLUME 86.8 fl (80.0-96.0); MONO # 0.7 10^3/uL (0.0-0.8); MONO % 11.2 % (0.0-5.0); NEUTROPHILS # 4.5 10^3/uL (1.8-7.7); NEUTROPHILS % 71.1 % (36.0-66.0); PLATELET COUNT, AUTOMATED 300 10^3/uL (150-450); RED BLOOD COUNT 4.71 10^6/uL (4.30-6.10); WHITE BLOOD COUNT 6.4 10^3/uL (4.0-10.0)
[2019-01-10 08:25] LABS: ALT/SGPT 63 U/L (12-78); BILIRUBIN,TOTAL 0.6 MG/DL (0.2-1.0); BLOOD UREA NITROGEN 20 MG/DL (7-18); CALCIUM LEVEL 9.1 MG/DL (8.8-10.2); CARBON DIOXIDE LEVEL 30 MEQ/L (21-32); CHLORIDE LEVEL 101 MEQ/L (98-107); GLOMERULAR FILTRATION RATE > 60.0 (>35); GLUCOSE, FASTING 102 MG/DL (70-100); POTASSIUM SERUM 3.8 MEQ/L (3.5-5.1); SODIUM LEVEL 137 MEQ/L (136-145); TOTAL PROTEIN 7.4 GM/DL (6.4-8.2)
[2019-01-10] MEDS: TUDORZA PRESSAIR 400 MCG INH SCH ×2 (08:34→21:56)
[2019-01-10 08:50] VITALS: BP 130/78
[2019-01-10] MEDS: OMEPRAZOLE 20 MG CAP PO SCH (09:06)
[2019-01-10] MEDS: GABAPENTIN 100 MG CAP PO SCH ×2 (09:06→21:55)
[2019-01-10] MEDS: DYAZIDE 37.5/25 CAP (TRIAM/HCTZ) PO SCH (09:06)
[2019-01-10] MEDS: MOM 30ML SUSPENSION UDC PO PRN (09:06)
[2019-01-10] MEDS: amLODIPine 5 MG TAB PO SCH (09:07)
[2019-01-10] MEDS: SINEMET 25-100 MG TAB PO SCH ×3 (09:07→21:55)
[2019-01-10] MEDS: ASPIRIN 81 MG ENTERIC TAB PO SCH (09:08)
[2019-01-10 12:04] LABS: C REACTIVE PROTEIN QUANTITATIV 2.93 MG/DL (0.00-0.30)
[2019-01-10 12:13] LABS: ERYTHROCYTE SEDIMENTATION RATE 53 mm/hr (0-20)
--- NOTE | 2019-01-10 12:15 | IPNPDOC ---
Text Note Date of Service The patient was seen on 01/10/19. NOTE Subjective: Patient seen and examined at bedside. No acute overnight events reported. No new medical complaints. No back pain at rest, but still has severe pain with movement. Objective: General: NAD, lying comfortably in bed, elderly HEENT: NC/AT, EOMI Lungs: CTA B/L Heart: +S1S2, RRR Abd: soft, NT, +BS A/P: 78 yo male for suspected OM/discitis #L2-3 suspected osteomyelitis and discitis: -Status post biopsy for pathology and micro-by interventional radiology on 01/03/19 - micro reports there may be possible growth - will require to stay over the weekend for further results of growth -No growth aerobically/anaerobically on aspirate. Pathology showed acellular specimen -previously discussed with IDDr. Sawyer - plan is for repeat IR guided biopsy today -Patient had received BCG treatment for bladder cancersuspicion is that patient may have tuberculous infection of the spine -Added AFB stain and culture to the specimen collected previously as well -Was initially treated with IV vancomycin and Zosyn discontinued by ID -Blood cultures - no growth -Echocardiogram did not show any obvious intracardiac mass. -Continue Tylenol with codeine for pain control, gabapentin -Lumbar brace with activitymay leave brace off at rest or when sleeping. Weightbearing as tolerated with walker and brace. -Continue PT/OT #Abnormal chest x-ray: -Chest CT shows by apical fibrosis pattern suggestive of postradiation change. #Hypertension: -Continue quinapril, amlodipine (as a substitute for felodipine), triamtereneHCTZ -Blood pressure is well controlled #Hyperlipidemia: -Continue atorvastatin #Tremors: -Continue carbidopalevodopa #COPD, not in exacerbation: -Continue Tudorza if able to bring med in. Prn Ventolin #Hypothyroidism: -Continue levothyroxine #DVT PPx: -SCDs. Holding off on lovenox for planned biopsy today Dispo: pending IR biopsy today; follow with micro and ID for possible growth; will require stay over weekend - family aware; continue PT/OT, PFS for home safety VS,Fishbone, I+O VS, Fishbone, I+O Laboratory Tests 01/10/19 07:36 Red Blood Count 4.71, Mean Corpuscular Volume 86.8, Mean Corpuscular Hemoglobin 29.5, Mean Corpuscular Hemoglobin Concent 34.0, Red Cell Distribution Width 13.1, Neutrophils (%) (Auto) 71.1 H, Lymphocytes (%) (Auto) 15.0 L, Monocytes (%) (Auto) 11.2 H, Eosinophils (%) (Auto) 1.6, Basophils (%) (Auto) 0.5, Neutrophils # (Auto) 4.5, Lymphocytes # (Auto) 1.0 L, Monocytes # (Auto) 0.7, Eosinophils # (Auto) 0.1, Basophils # (Auto) 0.0, Calcium Level 9.1, Aspartate Amino Transf (AST/SGOT) 27, Alanine Aminotransferase (ALT/SGPT) 63, Alkaline Phosphatase 135 H, Total Bilirubin 0.6, Total Protein 7.4, Albumin 3.0 L Vital Signs Date Time Temp Pulse Resp B/P (MAP) Pulse Ox O2 Delivery O2 Flow Rate FiO2 01/10/19 10:02 16 01/10/19 09:07 88 130/78 01/10/19 08:50 98.5 94 I&O- Last 24 Hours up to 6 AM 01/10/19 06:00 Intake Total 1320 ml Output Total 1925 ml Balance -605 ml SABINA LEON MD Jan 10, 2019 12:15
[2019-01-10] MEDS: ACETAMINOPHEN TAB 650MG DOSE (2X325MG) PO PRN (12:56)
[2019-01-10] MEDS ORDERED: LIDOCAINE 1% MDV 20ML VIAL As Ordered ONE (13:37)
[2019-01-10 14:00] VITALS: BP 122/62
--- NOTE | 2019-01-10 16:14 | IPNPDOC ---
Text Note Date of Service The patient was seen on 01/10/19. NOTE Patient was seen at bedside with his daughter. 1. L2,L3 Discitis -Checked with micro today, apparently his first biopsy from 01/03/19 was beginning to grow bacteria on the Thio medium, it was plated again and hopefully will show growth tomorrow or Monday, gram stain revealed gram positive cocci in clusters, could potentially be anaerobic cocci or staph, also possibility for contaminant coag neg staph. Patient will not be discharged tomorrow, he may need PICC line for prolonged IV antibiotics, he is going for repeat CT guided biopsy today of L2 L3, hopefully pathology may see evidence for TB in microscopy today, otherwise TB can take 4-6 weeks to grow. Holding treatment for TB of Rifampin, Ethambutol and Isoniazid for now as do not have evidence yet for TB infection. Antibiotics have been stopped for anticipation of biopsy today. This was discussed with the patient, his daughter and attending physician Dr Hirsch. We will await growth of bacteria hopefully tomorrow or by Monday, he should not be discharged before this can be demonstrated as he may need IV antibiotics as stated above. Continue pain control per primary team is advised, the patient states his pain in his low back is better today. Their questions were addressed, they verbilized their understanding and had no questions. Repeated ESR and CRP today. A-FIB/CHADSVASC A-FIB History Current/History of A-Fib/PAF?: No VS,Fishbone, I+O VS, Fishbone, I+O Laboratory Tests 01/10/19 07:36 Red Blood Count 4.71, Mean Corpuscular Volume 86.8, Mean Corpuscular Hemoglobin 29.5, Mean Corpuscular Hemoglobin Concent 34.0, Red Cell Distribution Width 13.1, Neutrophils (%) (Auto) 71.1 H, Lymphocytes (%) (Auto) 15.0 L, Monocytes (%) (Auto) 11.2 H, Eosinophils (%) (Auto) 1.6, Basophils (%) (Auto) 0.5, Neutrophils # (Auto) 4.5, Lymphocytes # (Auto) 1.0 L, Monocytes # (Auto) 0.7, Eosinophils # (Auto) 0.1, Basophils # (Auto) 0.0, Calcium Level 9.1, Aspartate Amino Transf (AST/SGOT) 27, Alanine Aminotransferase (ALT/SGPT) 63, Alkaline Phosphatase 135 H, Total Bilirubin 0.6, Total Protein 7.4, Albumin 3.0 L Vital Signs Date Time Temp Pulse Resp B/P (MAP) Pulse Ox O2 Delivery O2 Flow Rate FiO2 01/10/19 14:00 98.6 86 18 122/62 (82) 95 I&O- Last 24 Hours up to 6 AM 01/10/19 06:00 Intake Total 1320 ml Output Total 1925 ml Balance -605 ml GME ATTESTATION GME ATTESTATION My faculty preceptor for this patient encounter was physically present during the encounter and was fully available. All aspects of the patient interview, examination, medical decision making process, and medical care plan development were reviewed and approved by the faculty preceptor. The faculty preceptor is aware and concurs with the plan as stated in the body of this note and will attest to such by his/her cosignature. SLY ALAMO DO Jan 10, 2019 16:14
[2019-01-10] MEDS: ATORVASTATIN 20 MG TAB PO SCH (21:55)
[2019-01-10] MEDS: QUINAPRIL 20 MG TAB PO SCH (21:55)
[2019-01-10] MEDS: TAMSULOSIN 0.4 MG CAP PO SCH (21:55)
[2019-01-10 22:00] VITALS: BP 106/70
[2019-01-11] MEDS: ACETAMINOPH W/CODEINE #3 TAB UD PO PRN ×4 (03:13→20:57)
[2019-01-11] MEDS: LEVOTHYROXINE 75MCG TABLET (0.075MG) PO SCH (05:49)
[2019-01-11] MEDS: ACETAMINOPHEN TAB 650MG DOSE (2X325MG) PO PRN (05:50)
[2019-01-11 06:00] VITALS: BP 103/66
[2019-01-11 08:00] VITALS: BP 117/73
[2019-01-11 08:08] LABS: HEMATOCRIT 42.2 % (42.0-52.0); HEMOGLOBIN 14.3 g/dl (13.5-17.5); MEAN CORPUSCULAR HEMOGLOBIN 29.2 pg (27.0-33.0); MEAN CORPUSCULAR HGB CONC 33.9 g/dl (32.0-36.5); MEAN CORPUSCULAR VOLUME 86.3 fl (80.0-96.0); PLATELET COUNT, AUTOMATED 320 10^3/uL (150-450); RED BLOOD COUNT 4.89 10^6/uL (4.30-6.10); WHITE BLOOD COUNT 7.6 10^3/uL (4.0-10.0)
[2019-01-11 08:34] LABS: BLOOD UREA NITROGEN 25 MG/DL (7-18); C REACTIVE PROTEIN QUANTITATIV 2.66 MG/DL (0.00-0.30); CALCIUM LEVEL 9.3 MG/DL (8.8-10.2); CARBON DIOXIDE LEVEL 30 MEQ/L (21-32); CHLORIDE LEVEL 100 MEQ/L (98-107); CREATININE FOR GFR 0.77 MG/DL (0.70-1.30); GLOMERULAR FILTRATION RATE > 60.0 (>35); GLUCOSE, FASTING 104 MG/DL (70-100); POTASSIUM SERUM 3.7 MEQ/L (3.5-5.1); SODIUM LEVEL 136 MEQ/L (136-145)
[2019-01-11] MEDS: GABAPENTIN 100 MG CAP PO SCH ×2 (08:56→20:56)
[2019-01-11] MEDS: OMEPRAZOLE 20 MG CAP PO SCH (08:57)
[2019-01-11] MEDS: amLODIPine 5 MG TAB PO SCH (08:57)
[2019-01-11] MEDS: SINEMET 25-100 MG TAB PO SCH ×3 (08:58→20:56)
[2019-01-11] MEDS: ASPIRIN 81 MG ENTERIC TAB PO SCH (08:58)
[2019-01-11] MEDS: TUDORZA PRESSAIR 400 MCG INH SCH ×2 (09:04→20:00)
[2019-01-11] MEDS: DYAZIDE 37.5/25 CAP (TRIAM/HCTZ) PO SCH (09:09)
--- NOTE | 2019-01-11 11:17 | IPNPDOC ---
Subjective Date Seen The patient was seen on 01/11/19. Subjective Chief Complaint/HPI Patient seen and examined at the bedside. Reports that his pain is better tolerated today and notes that he was able to walk to the end of the robles with a rolling walker today. He continues to await the final culture results from biopsy on 01/10/19. Denies any other acute complaints at this time. Objective Physical Examination General Exam: Positive: Alert, Cooperative, No Acute Distress ENT Exam: Positive: Atraumatic, Mucous membr. moist/pink Chest Exam: Positive: Clear to auscultation; Negative: Rales, Rhonchi, Wheezing Heart Exam: Positive: Rate Normal, Regular Rhythm, Normal S1, Normal S2 Abdomen Exam: Positive: Soft; Negative: Tenderness Extremity Exam: Negative: Tenderness, Swelling Neuro Exam: Positive: Strength at 5/5 X4 ext, Other (strength 5 over 5 in bilateral ankles to dorsi and plantar flexion. Intact fine touch.) Psych Exam: Positive: Oriented x 3 A-FIB/CHADSVASC A-FIB History Current/History of A-Fib/PAF?: No Assessment /Plan Plan/VTE VTE Prophylaxis Ordered?: Yes VTE Exclusion Pharmacological: Other (Needs CT guided L2-3 biopsy) Plan L2-3 Discitis possibly 2/2 BCG, less likely Bacterial in Etiology Status post biopsy for pathology and micro-by interventional radiology on 01/03 Micro reports have been unrevealing thus far No growth aerobically/anaerobically on aspirate. Repeat Biopsy done on 01/10/19 with results pending Blood cultures - no growth Echocardiogram did not show any obvious intracardiac mass. Continue Tylenol with codeine for pain control, gabapentin Continue PT/OT for functional optimization Infectious diseases on board--discussed the case with Dr. Sawyer this morning via telephone, if the patient's cultures remain negative over the weekend, patient may possibly be discharged home with close follow up with ID as outpatient. We will hold off on antibiotics as this is likely not bacterial in etiology according to ID. Dr. Sawyer will follow the patient closely in the outpatient setting in 7-10 days for further evaluation and follow up on cultures Hypertension Continue quinapril, amlodipine, triamterene/HCTZ Hyperlipidemia: Continue atorvastatin Tremors Continue carbidopa-levodopa COPD, not in exacerbation: Cont meds as ordered Hypothyroidism: Continue levothyroxine GERD Cont PPI BPH Cont Flomax DVT PPx: SCDs Dispo: pending cultures from 01/10 biopsy. Will f/u with ID recommendations. VS, I&O, 24H, Fishbone Vital Signs/I&O Vital Signs Date Time Temp Pulse Resp B/P (MAP) Pulse Ox O2 Delivery O2 Flow Rate FiO2 01/11/19 08:58 16 01/11/19 08:57 80 117/73 01/11/19 08:00 97.5 96 I&O- Last 24 Hours up to 6 AM 01/11/19 06:00 Intake Total 1200 ml Output Total 1800 ml Balance -600 ml Laboratory Data 24H LABS Laboratory Tests 2 01/11/19 07:48: Nucleated Red Blood Cells % (auto) 0.0, Anion Gap 6L, Glomerular Filtration Rate > 60.0, Blood Urea Nitrogen 25H, Creatinine 0.77, Sodium Level 136, Potassium Level 3.7, Chloride Level 100, Carbon Dioxide Level 30, Calcium Level 9.3, C- Reactive Protein, Quantitative 2.66H CBC/BMP Laboratory Tests 01/11/19 07:48 Red Blood Count 4.89, Mean Corpuscular Volume 86.3, Mean Corpuscular Hemoglobin 29.2, Mean Corpuscular Hemoglobin Concent 33.9, Red Cell Distribution Width 13.2, Calcium Level 9.3 Microbiology Microbiology 01/03/19 Blood Culture - Final, Complete NO GROWTH AFTER 5 DAYS 01/03/19 Acid Fast Stain, Received Pending 01/03/19 Mycobacterial Culture, Received Pending 01/03/19 Gram Stain - Final, Resulted 01/03/19 Body Fluid Culture - Preliminary, Resulted 01/03/19 MRSA Screen - Final, Complete 01/10/19 Gram Stain - Final, Resulted 01/10/19 Abscess Culture, Resulted Pending 01/10/19 Acid Fast Stain, Received Pending 01/10/19 Mycobacterial Culture, Received Pending 01/10/19 Anaerobic Culture, Received Pending 01/03/19 Anaerobic Culture - Final, Complete NICK COVARRUBIAS MD Jan 11, 2019 11:17
--- NOTE | 2019-01-11 13:12 | REP ---
CT-guided right upper lobe lung biopsy The procedure is performed by PRADIP Terrazas, under the personal supervision of Dr. Luque. The risks and benefits of the procedure were explained to the patient and informed consent was obtained both orally and written. Directly prior to the start of the procedure, a formal timeout was done in the exam room. The L2-L3 disc space was localized using CT guidance. Skin was prepped and draped in the usual sterile fashion. 5 ml of 1% lidocaine was used as a local anesthetic. Using CT guidance and 19/20 gauge coaxial needle biopsy system was inserted and advanced into the disc space . Approximately 1 milliliter of low viscosity red colored of fluid was withdrawn, and sent to the lab for further analysis . Five core biopsy samples were obtained and sent to the lab. The patient tolerated the procedure well and there were no immediate complications. The patient was discharged back to the floor. Reviewed by PRADIP Mo 01/10/2019 05:36 P Electronically Signed by Josiah Luque MD 01/11/2019 01:03 P
[2019-01-11] MEDS: TAMSULOSIN 0.4 MG CAP PO SCH (20:56)
[2019-01-11] MEDS: ATORVASTATIN 20 MG TAB PO SCH (20:56)
[2019-01-11] MEDS: QUINAPRIL 20 MG TAB PO SCH (20:56)
[2019-01-11 22:00] VITALS: BP 138/67
[2019-01-12] MEDS: ACETAMINOPH W/CODEINE #3 TAB UD PO PRN ×5 (02:30→21:48)
[2019-01-12 06:00] VITALS: BP 102/52
[2019-01-12 06:39] LABS: HEMATOCRIT 39.3 % (42.0-52.0); HEMOGLOBIN 13.4 g/dl (13.5-17.5); MEAN CORPUSCULAR HEMOGLOBIN 29.6 pg (27.0-33.0); MEAN CORPUSCULAR HGB CONC 34.1 g/dl (32.0-36.5); MEAN CORPUSCULAR VOLUME 86.9 fl (80.0-96.0); PLATELET COUNT, AUTOMATED 298 10^3/uL (150-450); RED BLOOD COUNT 4.52 10^6/uL (4.30-6.10); WHITE BLOOD COUNT 7.5 10^3/uL (4.0-10.0)
[2019-01-12] MEDS: LEVOTHYROXINE 75MCG TABLET (0.075MG) PO SCH (06:39)
[2019-01-12 06:59] LABS: BLOOD UREA NITROGEN 32 MG/DL (7-18); C REACTIVE PROTEIN QUANTITATIV 2.79 MG/DL (0.00-0.30); CARBON DIOXIDE LEVEL 30 MEQ/L (21-32); CHLORIDE LEVEL 102 MEQ/L (98-107); CREATININE FOR GFR 0.74 MG/DL (0.70-1.30); GLOMERULAR FILTRATION RATE > 60.0 (>35); GLUCOSE, FASTING 96 MG/DL (70-100); POTASSIUM SERUM 3.9 MEQ/L (3.5-5.1); SODIUM LEVEL 137 MEQ/L (136-145)
[2019-01-12 08:41] VITALS: BP 108/53
[2019-01-12] MEDS: DYAZIDE 37.5/25 CAP (TRIAM/HCTZ) PO SCH (08:44)
[2019-01-12] MEDS: amLODIPine 5 MG TAB PO SCH (08:44)
[2019-01-12] MEDS: SINEMET 25-100 MG TAB PO SCH ×3 (08:44→20:37)
[2019-01-12] MEDS: ASPIRIN 81 MG ENTERIC TAB PO SCH (08:45)
[2019-01-12] MEDS: OMEPRAZOLE 20 MG CAP PO SCH (08:45)
[2019-01-12] MEDS: GABAPENTIN 100 MG CAP PO SCH ×2 (08:45→20:36)
[2019-01-12] MEDS: TUDORZA PRESSAIR 400 MCG INH SCH ×2 (08:46→20:37)
[2019-01-12 14:00] VITALS: BP 106/58
--- NOTE | 2019-01-12 14:01 | IPNPDOC ---
Subjective Date Seen The patient was seen on 01/12/19. Subjective Chief Complaint/HPI Patient seen and examined at the bedside. No acute overnight events noted. Objective Physical Examination General Exam: Positive: Alert, Cooperative, No Acute Distress ENT Exam: Positive: Atraumatic, Mucous membr. 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 Repeat Biopsy done on 01/10/19 with results also unrevealing at this time Blood cultures - no growth Echocardiogram did not show any obvious intracardiac mass. Continue Tylenol with codeine for pain control, gabapentin Continue PT/OT for functional optimization Infectious diseases on board--patient to be D/C'd w/o antibiotics at this time and follow up as outpatient Hypertension Continue quinapril, amlodipine, triamterene/HCTZ Hyperlipidemia: Continue atorvastatin Tremors Continue carbidopa-levodopa COPD, not in exacerbation: Cont meds as ordered Hypothyroidism: Continue levothyroxine GERD Cont PPI BPH Cont Flomax DVT PPx: SCDs Dispo: patient to be discharged home tomorrow, daughter to pick the patient up. VS, I&O, 24H, Fishbone Vital Signs/I&O Vital Signs Date Time Temp Pulse Resp B/P (MAP) Pulse Ox O2 Delivery O2 Flow Rate FiO2 01/12/19 12:28 18 01/12/19 08:44 84 108/53 01/12/19 08:41 98.8 96 I&O- Last 24 Hours up to 6 AM 01/12/19 06:00 Intake Total 1040 ml Output Total 1075 ml Balance -35 ml Laboratory Data 24H LABS Laboratory Tests 2 01/12/19 06:26: Nucleated Red Blood Cells % (auto) 0.0, Anion Gap 5L, Glomerular Filtration Rate > 60.0, Blood Urea Nitrogen 32H, Creatinine 0.74, Sodium Level 137, Potassium Level 3.9, Chloride Level 102, Carbon Dioxide Level 30, Calcium Level 9.0, C- Reactive Protein, Quantitative 2.79H CBC/BMP Laboratory Tests 01/12/19 06:26 Red Blood Count 4.52, Mean Corpuscular Volume 86.9, Mean Corpuscular Hemoglobin 29.6, Mean Corpuscular Hemoglobin Concent 34.1, Red Cell Distribution Width 13.2, Calcium Level 9.0 Microbiology Microbiology 01/03/19 Blood Culture - Final, Complete NO GROWTH AFTER 5 DAYS 01/03/19 Acid Fast Stain, Received Pending 01/03/19 Mycobacterial Culture, Received Pending 01/03/19 Gram Stain - Final, Resulted 01/03/19 Body Fluid Culture - Preliminary, Resulted 01/03/19 MRSA Screen - Final, Complete 01/10/19 Gram Stain - Final, Complete 01/10/19 Abscess Culture - Final, Complete 01/10/19 Acid Fast Stain, Received Pending 01/10/19 Mycobacterial Culture, Received Pending 01/10/19 Anaerobic Culture - Final, Complete 01/03/19 Anaerobic Culture - Final, Complete NICK COVARRUBIAS MD Jan 12, 2019 14:01
[2019-01-12] MEDS: QUINAPRIL 20 MG TAB PO SCH (20:36)
[2019-01-12] MEDS: ATORVASTATIN 20 MG TAB PO SCH (20:36)
[2019-01-12] MEDS: TAMSULOSIN 0.4 MG CAP PO SCH (20:37)
[2019-01-12 22:00] VITALS: BP 124/75
[2019-01-13 00:06] LABS: HISTOPLASMA GAL'MANNAN AG UR <0.5 (<0.5 ng/mL)
[2019-01-13] MEDS: ACETAMINOPH W/CODEINE #3 TAB UD PO PRN ×5 (04:15→22:23)
[2019-01-13] MEDS: LEVOTHYROXINE 75MCG TABLET (0.075MG) PO SCH (05:24)
[2019-01-13 06:00] VITALS: BP 111/80
[2019-01-13 06:59] LABS: HEMATOCRIT 39.6 % (42.0-52.0); HEMOGLOBIN 13.4 g/dl (13.5-17.5); MEAN CORPUSCULAR HEMOGLOBIN 29.6 pg (27.0-33.0); MEAN CORPUSCULAR HGB CONC 33.8 g/dl (32.0-36.5); MEAN CORPUSCULAR VOLUME 87.6 fl (80.0-96.0); PLATELET COUNT, AUTOMATED 329 10^3/uL (150-450); RED BLOOD COUNT 4.52 10^6/uL (4.30-6.10); WHITE BLOOD COUNT 7.2 10^3/uL (4.0-10.0)
[2019-01-13 07:19] LABS: BLOOD UREA NITROGEN 27 MG/DL (7-18); C REACTIVE PROTEIN QUANTITATIV 2.41 MG/DL (0.00-0.30); CALCIUM LEVEL 9.2 MG/DL (8.8-10.2); CARBON DIOXIDE LEVEL 31 MEQ/L (21-32); CHLORIDE LEVEL 102 MEQ/L (98-107); CREATININE FOR GFR 0.92 MG/DL (0.70-1.30); GLOMERULAR FILTRATION RATE > 60.0 (>35); GLUCOSE, FASTING 90 MG/DL (70-100); POTASSIUM SERUM 3.9 MEQ/L (3.5-5.1); SODIUM LEVEL 138 MEQ/L (136-145)
[2019-01-13] MEDS: GABAPENTIN 100 MG CAP PO SCH ×2 (08:39→20:55)
[2019-01-13] MEDS: SINEMET 25-100 MG TAB PO SCH ×3 (08:40→20:55)
[2019-01-13] MEDS: OMEPRAZOLE 20 MG CAP PO SCH (08:40)
[2019-01-13] MEDS: ASPIRIN 81 MG ENTERIC TAB PO SCH (08:40)
[2019-01-13] MEDS: DYAZIDE 37.5/25 CAP (TRIAM/HCTZ) PO SCH (08:42)
[2019-01-13] MEDS: amLODIPine 5 MG TAB PO SCH (08:42)
[2019-01-13] MEDS: TUDORZA PRESSAIR 400 MCG INH SCH ×2 (09:00→20:56)
[2019-01-13] MEDS: MOM 30ML SUSPENSION UDC PO PRN (10:04)
[2019-01-13 14:00] VITALS: BP 128/67
--- NOTE | 2019-01-13 14:13 | IPNPDOC ---
Subjective Date Seen The patient was seen on 01/13/19. Subjective Chief Complaint/HPI Patient seen and examined at bedside. No acute overnight events noted. I did speak at length with the patient's daughter yesterday at the bedside. She tells me that she is getting help at home to assist with the care of her father. She tells me that this will be in place on Monday, and notes that is when she will be able to take the patient home. Otherwise, no acute complaints offered by the patient. Objective Physical Examination General Exam: Positive: Alert, Cooperative, No Acute Distress ENT Exam: Positive: Atraumatic, Mucous membr. 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 Repeat Biopsy done on 01/10/19 with results also unrevealing at this time Blood cultures - no growth Echocardiogram did not show any obvious intracardiac mass. Continue Tylenol with codeine for pain control, gabapentin Continue PT/OT for functional optimization Infectious diseases on board--patient to be D/C'd w/o antibiotics at this time and follow up as outpatient Hypertension Continue quinapril, amlodipine, triamterene/HCTZ Hyperlipidemia: Continue atorvastatin Tremors Continue carbidopa-levodopa COPD, not in exacerbation: Cont meds as ordered Hypothyroidism: Continue levothyroxine GERD Cont PPI BPH Cont Flomax DVT PPx: SCDs Dispo: patient to be discharged home tomorrow, daughter to pick the patient up. VS, I&O, 24H, Fishbone Vital Signs/I&O Vital Signs Date Time Temp Pulse Resp B/P (MAP) Pulse Ox O2 Delivery O2 Flow Rate FiO2 01/13/19 14:00 18 01/13/19 08:42 80 104/59 01/13/19 06:00 97.7 94 I&O- Last 24 Hours up to 6 AM 01/13/19 06:00 Intake Total 1800 ml Output Total 1625 ml Balance 175 ml Laboratory Data 24H LABS Laboratory Tests 2 01/13/19 06:14: Anion Gap 5L, Glomerular Filtration Rate > 60.0, Blood Urea Nitrogen 27H, Creatinine 0.92, Sodium Level 138, Potassium Level 3.9, Chloride Level 102, Carbon Dioxide Level 31, Calcium Level 9.2, C-Reactive Protein, Quantitative 2.41H 01/13/19 06:15: Nucleated Red Blood Cells % (auto) 0.0 CBC/BMP Laboratory Tests 01/13/19 06:14 Calcium Level 9.2 01/13/19 06:15 Red Blood Count 4.52, Mean Corpuscular Volume 87.6, Mean Corpuscular Hemoglobin 29.6, Mean Corpuscular Hemoglobin Concent 33.8, Red Cell Distribution Width 13.2 Microbiology Microbiology 01/03/19 Blood Culture - Final, Complete NO GROWTH AFTER 5 DAYS 01/03/19 Acid Fast Stain, Received Pending 01/03/19 Mycobacterial Culture, Received Pending 01/03/19 Gram Stain - Final, Resulted 01/03/19 Body Fluid Culture - Preliminary, Resulted 01/03/19 MRSA Screen - Final, Complete 01/10/19 Gram Stain - Final, Complete 01/10/19 Abscess Culture - Final, Complete 01/10/19 Acid Fast Stain, Received Pending 01/10/19 Mycobacterial Culture, Received Pending 01/10/19 Anaerobic Culture - Final, Complete 01/03/19 Anaerobic Culture - Final, Complete NICK COVARRUBIAS MD Jan 13, 2019 14:13
[2019-01-13] MEDS: TAMSULOSIN 0.4 MG CAP PO SCH (20:55)
[2019-01-13] MEDS: ATORVASTATIN 20 MG TAB PO SCH (20:55)
[2019-01-13] MEDS: QUINAPRIL 20 MG TAB PO SCH (20:55)
[2019-01-13 22:00] VITALS: BP 105/60
[2019-01-14] MEDS: ACETAMINOPH W/CODEINE #3 TAB UD PO PRN ×5 (03:48→22:58)
[2019-01-14] MEDS: LEVOTHYROXINE 75MCG TABLET (0.075MG) PO SCH (05:46)
[2019-01-14 05:47] LABS: HEMATOCRIT 40.9 % (42.0-52.0); HEMOGLOBIN 13.7 g/dl (13.5-17.5); MEAN CORPUSCULAR HEMOGLOBIN 29.5 pg (27.0-33.0); MEAN CORPUSCULAR HGB CONC 33.5 g/dl (32.0-36.5); PLATELET COUNT, AUTOMATED 339 10^3/uL (150-450); RED BLOOD COUNT 4.65 10^6/uL (4.30-6.10); WHITE BLOOD COUNT 6.3 10^3/uL (4.0-10.0)
[2019-01-14 06:00] VITALS: BP 114/58
[2019-01-14 06:19] LABS: BLOOD UREA NITROGEN 30 MG/DL (7-18); C REACTIVE PROTEIN QUANTITATIV 2.33 MG/DL (0.00-0.30); CALCIUM LEVEL 8.8 MG/DL (8.8-10.2); CARBON DIOXIDE LEVEL 29 MEQ/L (21-32); CHLORIDE LEVEL 103 MEQ/L (98-107); CREATININE FOR GFR 0.84 MG/DL (0.70-1.30); GLOMERULAR FILTRATION RATE > 60.0 (>35); GLUCOSE, FASTING 100 MG/DL (70-100); POTASSIUM SERUM 4.5 MEQ/L (3.5-5.1); SODIUM LEVEL 137 MEQ/L (136-145)
[2019-01-14] MEDS: TUDORZA PRESSAIR 400 MCG INH SCH ×2 (08:18→20:35)
[2019-01-14] MEDS: amLODIPine 5 MG TAB PO SCH (08:34)
[2019-01-14] MEDS: OMEPRAZOLE 20 MG CAP PO SCH (08:34)
[2019-01-14] MEDS: SINEMET 25-100 MG TAB PO SCH ×3 (08:34→20:35)
[2019-01-14] MEDS: DYAZIDE 37.5/25 CAP (TRIAM/HCTZ) PO SCH (08:34)
[2019-01-14] MEDS: ASPIRIN 81 MG ENTERIC TAB PO SCH (08:35)
[2019-01-14] MEDS: GABAPENTIN 100 MG CAP PO SCH ×2 (08:35→20:35)
[2019-01-14] MEDS ORDERED: BISACODYL 10 MG SUPP PR ONE (08:45)
[2019-01-14] MEDS ORDERED: ACET1TAB16 PO (11:15)
[2019-01-14 14:00] VITALS: BP 139/71
--- NOTE | 2019-01-14 14:16 | IPNPDOC ---
Subjective Date Seen The patient was seen on 01/14/19. Subjective Chief Complaint/HPI Patient seen and examined at the bedside. Reports that his back pain is tolerable with the current pain regimen at this time. Otherwise denies any acute complaints. Objective Physical Examination General Exam: Positive: Alert, Cooperative, No Acute Distress ENT Exam: Positive: Atraumatic, Mucous membr. moist/pink Chest Exam: Positive: Clear to auscultation; Negative: Rales, Rhonchi, Wheezing Heart Exam: Positive: Rate Normal, Regular Rhythm, Normal S1, Normal S2 Abdomen Exam: Positive: Soft; Negative: Tenderness Extremity Exam: Negative: Tenderness, Swelling Neuro Exam: Positive: Strength at 5/5 X4 ext Psych Exam: Positive: Oriented x 3 Assessment /Plan Plan/VTE VTE Prophylaxis Ordered?: Yes VTE Exclusion Pharmacological: Other (Needs CT guided L2-3 biopsy) Plan L2-3 Discitis possibly 2/2 BCG vs Bacterial Etiology Status post biopsy for pathology and micro-by interventional radiology on 01/03/19 Body Fluid Culture from 01/03/19 has grown Anaerobic Cocci Repeat Biopsy done on 01/10/19 with results that are unrevealing at this time Blood cultures - no growth Echocardiogram did not show any obvious intracardiac mass. Continue Tylenol with codeine for pain control, gabapentin Continue PT/OT for functional optimization Infectious diseases on board--given the body fluid culture growth today, has recommended PICC Line with 4 weeks of IV Antibiotics I discussed the aforementioned findings at length with the patient and daughter, Magalie Cade at the bedside, and they have verbalized understanding of the same. Infectious diseases to discuss this further today with the patient/daughter, and follow-up with the patient as an outpatient thereafter Hypertension Continue quinapril, amlodipine, triamterene/HCTZ Hyperlipidemia: Continue atorvastatin Tremors Continue carbidopa-levodopa COPD, not in exacerbation: Cont meds as ordered Hypothyroidism: Continue levothyroxine GERD Cont PPI BPH Cont Flomax DVT PPx: SCDs Disposition-anticipate discharge home in 24-48 hours pending PICC line insertion, and setup of home IV antibiotic therapy. VS, I&O, 24H, Fishbone Vital Signs/I&O Vital Signs Date Time Temp Pulse Resp B/P (MAP) Pulse Ox O2 Delivery O2 Flow Rate FiO2 01/14/19 12:09 18 01/14/19 08:34 66 120/62 01/14/19 06:00 96.2 93 I&O- Last 24 Hours up to 6 AM 01/14/19 06:00 Intake Total 2740 ml Output Total 1700 ml Balance 1040 ml Laboratory Data 24H LABS Laboratory Tests 2 01/14/19 05:31: Nucleated Red Blood Cells % (auto) 0.0, Anion Gap 5L, Glomerular Filtration Rate > 60.0, Blood Urea Nitrogen 30H, Creatinine 0.84, Sodium Level 137, Potassium Level 4.5, Chloride Level 103, Carbon Dioxide Level 29, Calcium Level 8.8, C- Reactive Protein, Quantitative 2.33H CBC/BMP Laboratory Tests 01/14/19 05:31 Red Blood Count 4.65, Mean Corpuscular Volume 88.0, Mean Corpuscular Hemoglobin 29.5, Mean Corpuscular Hemoglobin Concent 33.5, Red Cell Distribution Width 13.2, Calcium Level 8.8 Microbiology Microbiology 01/10/19 Gram Stain - Final, Complete 01/10/19 Abscess Culture - Final, Complete 01/10/19 Acid Fast Stain, Received Pending 01/10/19 Mycobacterial Culture, Received Pending 01/10/19 Anaerobic Culture - Final, Complete NICK COVARRUBIAS MD Jan 14, 2019 14:16
[2019-01-14] MEDS ORDERED: LIDOCAINE 1% MDV 20ML VIAL As Ordered ONE (16:09)
[2019-01-14] MEDS: cefTRIAXone SOD 2 GM in D5W MINI-BAG PLUS 50 ML IV SCH (18:30)
[2019-01-14] MEDS ORDERED: SODIUM CHLORIDE 0.9% INJ 10 ML SYR IV PRN (19:30)
[2019-01-14] MEDS: TAMSULOSIN 0.4 MG CAP PO SCH (20:35)
[2019-01-14] MEDS: QUINAPRIL 20 MG TAB PO SCH (20:35)
[2019-01-14] MEDS: ATORVASTATIN 20 MG TAB PO SCH (20:35)
[2019-01-14 22:00] VITALS: BP 115/67
[2019-01-15] MEDS: ACETAMINOPH W/CODEINE #3 TAB UD PO PRN ×3 (04:47→12:37)
[2019-01-15 06:00] VITALS: BP 115/61
[2019-01-15] MEDS ORDERED: SODIUM CHLORIDE 0.9% INJ 10 ML SYR IV SCH (06:00)
[2019-01-15] MEDS: LEVOTHYROXINE 75MCG TABLET (0.075MG) PO SCH (06:40)
[2019-01-15 06:53] LABS: HEMATOCRIT 40.7 % (42.0-52.0); HEMOGLOBIN 14.1 g/dl (13.5-17.5); MEAN CORPUSCULAR HEMOGLOBIN 29.9 pg (27.0-33.0); MEAN CORPUSCULAR HGB CONC 34.6 g/dl (32.0-36.5); MEAN CORPUSCULAR VOLUME 86.2 fl (80.0-96.0); PLATELET COUNT, AUTOMATED 331 10^3/uL (150-450); RED BLOOD COUNT 4.72 10^6/uL (4.30-6.10); WHITE BLOOD COUNT 6.3 10^3/uL (4.0-10.0)
[2019-01-15 07:17] LABS: BLOOD UREA NITROGEN 23 MG/DL (7-18); C REACTIVE PROTEIN QUANTITATIV 2.66 MG/DL (0.00-0.30); CALCIUM LEVEL 9.6 MG/DL (8.8-10.2); CARBON DIOXIDE LEVEL 28 MEQ/L (21-32); CHLORIDE LEVEL 101 MEQ/L (98-107); CREATININE FOR GFR 0.75 MG/DL (0.70-1.30); GLOMERULAR FILTRATION RATE > 60.0 (>35); GLUCOSE, FASTING 107 MG/DL (70-100); POTASSIUM SERUM 3.8 MEQ/L (3.5-5.1); SODIUM LEVEL 135 MEQ/L (136-145)
[2019-01-15] MEDS: TUDORZA PRESSAIR 400 MCG INH SCH (08:14)
[2019-01-15 09:44] VITALS: BP 120/68
[2019-01-15] MEDS: amLODIPine 5 MG TAB PO SCH (09:44)
[2019-01-15] MEDS: GABAPENTIN 100 MG CAP PO SCH (09:44)
[2019-01-15] MEDS: OMEPRAZOLE 20 MG CAP PO SCH (09:44)
[2019-01-15] MEDS: ASPIRIN 81 MG ENTERIC TAB PO SCH (09:44)
[2019-01-15] MEDS: DYAZIDE 37.5/25 CAP (TRIAM/HCTZ) PO SCH (09:45)
[2019-01-15] MEDS: SINEMET 25-100 MG TAB PO SCH ×2 (11:02→15:01)
[2019-01-15] MEDS: cefTRIAXone SOD 2 GM in D5W MINI-BAG PLUS 50 ML IV SCH (12:36)
--- NOTE | 2019-01-15 12:58 | DS.PDOC ---
Discharge Summary General Date of Admission Jan 03, 2019 at 12:03 Date of Discharge 01/15/19 Specialist/Consultants Involve Dr. 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 HISTORY OF PRESENT ILLNESS: . 78-year-old male with past medical history of hypothyroidism, COPD, GERD, non- Hodgkin's lymphoma status post chemotherapy and radiation, bladder cancer status post resection, BPH, hypertension, and essential tremor presents to the ER with a chief complaint of lower back pain. He has been following up with orthopedic surgery as an outpatient, and obtained an MRI of the lumbar spine which revealed abnormal enhancement of the L2-L3 vertebrae concerning for discitis and osteo- myelitis. The patient was subsequently admitted to [facility] for further evaluation and management. During hospitalization at [facility] the patient underwent interventional radiology guided biopsy and aspiration of fluid cultures on 01/03 and repeated on 01/10. Infectious diseases was consulted for management of possible underlying discitis. The patient's body fluid culture did reveal anaerobic cocci from 01/03/19. The remainder of the cultures/pathology has been unrevealing thus far. At this time, the patient has been recommended to have 4 weeks of IV Rocephin therapy as per infectious diseases. Also, the patient is to follow-up with Dr. Sawyer of CT for further monitoring of culture AFB stain for possible BCG related discitis. At this time, the patient states that he is feeling better than when he was first admitted. He has been afebrile, his white blood cell count is within normal limits, and CRP markers have been trending downward. He has also cleared physical therapy. A PICC line has been obtained for access. The patient has been advised to follow-up with his PCP within 7 days, and with infectious diseases within 7-10 days. Lastly, the patient has been instructed to return to the ER for any acute emergencies. . DISCHARGE MEDICATIONS: Please see below. ALLERGIES: Please see below. PHYSICAL EXAMINATION ON DISCHARGE: VITAL SIGNS: Please see below. General Exam: Positive: Alert, Cooperative, No Acute Distress ENT Exam: Positive: Atraumatic, Mucous membr. moist/pink Chest Exam: Positive: Clear to auscultation; Negative: Rales, Rhonchi, Wheezing Heart Exam: Positive: Rate Normal, Regular Rhythm, Normal S1, Normal S2 Abdomen Exam: Positive: Soft; Negative: Tenderness Extremity Exam: Negative: Tenderness, Swelling Neuro Exam: Positive: Strength at 5/5 X4 ext Psych Exam: Positive: Oriented x 3 LABORATORY DATA: Please see below. IMAGING: Portable chest, single AP view, the patient is upright, 01:54 p.m.: There are no comparison plain film studies of the chest. There is a comparison chest CT dated 10/29 2007. There is a focal density in the right upper lobe. This could be artifact from the superimposed right first rib or could be a right upper lobe infiltrate/mass. . It was not present on the comparison CT. Follow-up chest CT might be considered to differentiate lung pathology from first rib artifact. The remainder of the lung lee are clear. Cardiac size is normal. The janice, mediastinum, and skeletal structures are unremarkable. Impression: Focal density in the right upper lobe as described, right upper lobe infiltrate/mass versus right first rib artifact. Recommend chest CT for further evaluation. CT-GUIDED L2-3 DISC BIOPSY/ASPIRATION The procedure was performed under the direct supervision of Dr. Moreno. The risks and benefits of the procedure were explained to the patient and informed consent was obtained. The L2-3 disc space was localized using CT guidance. The skin was prepped and draped in a sterile fashion. 1% lidocaine was used as a local anesthetic. Using CT guidance a 19/20 gauge coaxial needle biopsy system was inserted and advanced into the mass. 1 ml of low viscosity red colored fluid was withdrawn. Four core biopsy samples were obtained. All samples were sent to the lab for analysis. The patient tolerated the procedure well and there were no immediate complications. After the appropriate amount of monitored convalescence the patient was discharged from the department. CT chest with contrast: History: Right upper lobe abnormality on chest x-ray. Previous radiation therapy. Comparison chest x-ray is from January 03, 2019. Comparison CT study of the chest is dated October 29, 2007. CT contrast dose: 75 ml of intravenous Isovue [address] findings: There is no evidence of hilar or mediastinal mass or adenopathy. No pleural or pericardial effusion is seen. There is a pattern of bilateral apical pleuroparenchymal fibrosis in the anterior aspect of the lung apices on both sides. This could be post radiation fibrosis. No pulmonary mass lesion is seen. The lung lee are otherwise clear. No adrenal lesion is observed. A small accessory splenule is seen. The intrahepatic and extrahepatic biliary tree is somewhat prominent. The common bile duct measures 13 mm in greatest diameter. On the 2007 CT study the CBD measured 11 mm. No gallstone is seen. No choledocholithiasis is noted by CT. The main pancreatic duct is also mildly prominent. There is more colonic diverticulosis noted in the upper abdomen. Parapelvic renal cysts are observed. The patient has known destructive diskitis changes are noted at the bottom edge of the imaging field of view. No other bony destructive lesion is seen. 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 Otherwise no active cardiopulmonary disease. Somewhat prominent biliary and pancreatic ducts as above. Uncertain etiology. CT-guided right upper lobe lung biopsy The procedure is performed by PRADIP Terrazas, under the personal supervision of Dr. Luque. The risks and benefits of the procedure were explained to the patient and informed consent was obtained both orally and written. Directly prior to the start of the procedure, a formal timeout was done in the exam room. The L2-L3 disc space was localized using CT guidance. Skin was prepped and draped in the usual sterile fashion. 5 ml of 1% lidocaine was used as a local anesthetic. Using CT guidance and 19/20 gauge coaxial needle biopsy system was inserted and advanced into the disc space . Approximately 1 milliliter of low viscosity red colored of fluid was withdrawn, and sent to the lab for further analysis . Five core biopsy samples were obtained and sent to the lab. The patient tolerated the procedure well and there were no immediate complications. The patient was discharged back to the floor. PROGNOSIS: Fair ACTIVITY: As tolerated. DIET: 2 g low sodium diet DISCHARGE PLAN: DISPOSITION: . Home DISCHARGE INSTRUCTIONS: The patient has been advised to follow-up with his PCP within 7 days, and with infectious diseases within 7-10 days for further monitoring of AFB stain/cultures and of outpatient IV antibiotics and infection control. Lastly, the patient has been instructed to return to the ER for any acute emergencies. DISCHARGE CONDITION: Stable. TIME SPENT ON DISCHARGE: Greater than 30 minutes. Vital Signs/I&Os Vital Signs Date Time Temp Pulse Resp B/P (MAP) Pulse Ox O2 Delivery O2 Flow Rate FiO2 01/15/19 12:37 18 01/15/19 09:44 72 120/68 01/15/19 06:00 97.7 93 I&O- Last 24 Hours up to 6 AM 01/15/19 06:00 Intake Total 1260 ml Output Total 1050 ml Balance 210 ml Laboratory Data Labs 24H Laboratory Tests 2 01/15/19 06:31: Nucleated Red Blood Cells % (auto) 0.0, Anion Gap 6L, Glomerular Filtration Rate > 60.0, Blood Urea Nitrogen 23H, Creatinine 0.75, Sodium Level 135L, Potassium Level 3.8, Chloride Level 101, Carbon Dioxide Level 28, Calcium Level 9.6, C-Reactive Protein, Quantitative 2.66H CBC/BMP Laboratory Tests 01/15/19 06:31 Red Blood Count 4.72, Mean Corpuscular Volume 86.2, Mean Corpuscular Hemoglobin 29.9, Mean Corpuscular Hemoglobin Concent 34.6, Red Cell Distribution Width 13.0, Calcium Level 9.6 Microbiology Microbiology 01/10/19 Gram Stain - Final, Complete 01/10/19 Abscess Culture - Final, Complete 01/10/19 Acid Fast Stain, Received Pending 01/10/19 Mycobacterial Culture, Received Pending 01/10/19 Anaerobic Culture - Final, Complete Discharge Medications Scheduled Aclidinium [place] (Tudorza Pressair) 400 Mcg Aer.pow.ba, 400 MCG INH BID, (Reported) Aspirin (Aspir-Low) 81 Mg Tablet.dr, 81 MG PO DAILY, (Reported) Atorvastatin Calcium (Atorvastatin Calcium) 20 Mg Tablet, 20 MG PO QHS, (Reported) Carbidopa/Levodopa (Carbidopa-Levodopa 25-100 Tab) 1 Each Tablet, 1 TAB PO TID, (Reported) TAKES PRIVATE TUTOR (WITH SYNTHROID), MID-MORNING WITH OTHER AM MEDS, AND WITH EVENING MEDS AT BEDTIME Felodipine (Felodipine ER) 5 Mg Tab.er.24h, 5 MG PO DAILY, (Reported) Gabapentin (Gabapentin) 100 Mg Capsule, 100 MG PO BID, (Reported) Levothyroxine Sodium (Synthroid) 75 Mcg Tablet, 75 MCG PO QAM, (Reported) Multivitamin (Multivitamins) 1 Each Tablet, 1 TAB PO DAILY, (Reported) Omeprazole (Omeprazole) 20 Mg Capsule., 20 MG PO DAILY, (Reported) Quinapril HCl (Quinapril HCl) 40 Mg Tablet, 20 MG PO QHS, (Reported) Tamsulosin HCl (Flomax) 0.4 Mg Capsule, 0.4 MG PO QPM, (Reported) Triamterene/Hydrochlorothiazid (Triamterene-Hctz 37.5-25 mg Tb) 1 Each Tablet, 1 TAB PO DAILY, (Reported) Scheduled PRN Acetaminophen with Codeine (Acetaminophen-Cod #3 Tablet) 1 Each Tablet, 1 TAB PO Q4H PRN for PAIN Ibuprofen (Ibu-200) 200 Mg Tablet, 200 MG PO Q6H PRN for PAIN, (Reported) Allergies Coded Allergies: No Known Allergies (Unverified , 07/24/17) NICK COVARRUBIAS MD Jan 15, 2019 12:58
[2019-01-15] MEDS: ACETAMINOPHEN TAB 650MG DOSE (2X325MG) PO PRN (15:02)
--- NOTE | 2019-01-15 21:49 | IPN ---
DATE: 01/14/2019 Mr. Noble is doing fairly well. His back pain is tolerable. He states that the pain is worse when he tries to sit up or stand up. He has no fever or chills. No nausea, vomiting, or diarrhea. He had his peripherally inserted central catheter (PICC) line placed this afternoon without any complications. He remains afebrile. Temperature is 98.1, pulse 83, respirations 20, blood pressure 139/71, oxygen saturation 93% on room air. HEART: Normal S1, S2. No murmurs, rubs, or gallops. LUNGS: Clear. No wheezes, rales, or rhonchi. ABDOMEN: Soft, nontender. No hepatosplenomegaly. EXTREMITIES: No edema. BACK: No lumbosacral tenderness. Straight leg raising is positive at 45 degrees bilaterally, and motor strength is normal. He has no urinary or fecal incontinence. LABORATORY DATA: White count is 6.3, hemoglobin 13.7, hematocrit 40.9, platelets 339. Sodium 137, potassium 4.5, chloride 103, bicarbonate 29, BUN 30, creatinine 0.84, glucose 100, calcium 8.8. CRP 2.33, down from 4.09. Culture from January 03 grew anaerobic cocci after 9 days. Acid-fast bacillus (AFB) smear and culture are still pending. Second specimen on January 10, culture was negative. ESR on admission was 13, which increased to 53. Pathology from January 11 shows fragments of hyalin cartilage with myxodegenerative changes. No acute or chronic inflammatory changes are noted. No acute inflammatory changes noted on that biopsy. IMPRESSION: 1. L2-3 discitis by MRI finding with elevates sedimentation rate and C-reactive protein (CRP). The patient at risk of Bacillus Calmette-Keo (BCG) discitis. Anaerobic cocci are not typical. Pathogens to cause discitis, but that this point he will be treated with intravenous (IV) Rocephin. The patient is edentulous, and therefore that could not be the source of infection. Other possibility that was anaerobic cocci and may be a contaminant. 2. History of bladder cancer, status post 12 treatments of BCG over the past year and a half. Will rule out BCG discitis. PLAN: PICC line was placed today. The patient will be treated with IV ceftriaxone 2 grams every 24 hours for 4-6 weeks. Will followup in my office in 2 weeks. Will continue to followup on tuberculosi (TB) cultures. Case has been discussed with his daughter, Magalie Cade, who is his healthcare proxy. Antony has been called and MARQUIS Palacios will be in to do the teaching with IV Rocephin, and his [id number] will be caregiver who will be using the antibiotic.
--- NOTE | 2019-01-16 09:25 | REP ---
PICC line insertion under ultrasound guidance. The procedure was performed by PRADIP Terrazas, under the direct supervision of Dr. Luque. The risks and benefits of the procedure were explained to the patient and informed consent was obtained the verbally and written. Directly prior to the start of the procedure, a formal timeout was completed in the procedure room. The left basilic vein was localized using ultrasound guidance. The skin was prepped and draped in the sterile fashion. 2 ml 1% lidocaine was used as a local anesthetic. Using ultrasound guidance the left basilic vein was cannulated and a 0.018 guidewire was inserted and advanced to the SVC using fluoroscopic guidance. The needle was removed and a 4.5 Icelandic dilator and peel-away sheath was inserted over the guidewire. A 4.5 Icelandic single lumen catheter was cut to the length of 41 cm. The dilator was removed and the catheter was inserted over the guide wire with the tip ending in the SVC. The peel-away sheath was removed and the catheter was flushed with heparinized saline as per hospital protocol. The catheter was affixed to the skin and a sterile dressing was applied. The patient tolerated the procedure well and there were no immediate complications. 0.3 minutes of fluoroscopy time was utilized for this procedure. Reviewed by PRADIP Mo 01/15/2019 08:32 A Electronically Signed by Josiah Luque MD 01/16/2019 09:17 A
== END 2019-01-15 15:15 | disposition home health service (06) | DRG 552 ==
LOC: M MS5PR 12:03
PROVIDERS: ADMIT Internal Medicine; ATTEND Internal Medicine
PROC: 0SB23ZX Excision of Lumbar Vertebral Disc, Percutaneous Approach, Diagnostic (ICD-10-PCS; principal; 2019-01-03)
PROC: 0SB23ZX Excision of Lumbar Vertebral Disc, Percutaneous Approach, Diagnostic (ICD-10-PCS; 2019-01-10)
PROC: 02HV33Z Insertion of Infusion Device into Superior Vena Cava, Percutaneous Approach (ICD-10-PCS; 2019-01-14)
DX: M46.46 Discitis, unspecified, lumbar region (principal); M46.20 Osteomyelitis of vertebra, site unspecified; C85.90 Non-Hodgkin lymphoma, unspecified, unspecified site; E78.5 Hyperlipidemia, unspecified; E03.9 Hypothyroidism, unspecified; J44.9 Chronic obstructive pulmonary disease, unspecified; R25.1 Tremor, unspecified; I10 Essential (primary) hypertension; K21.9 Gastro-esophageal reflux disease without esophagitis; Z85.51 Personal history of malignant neoplasm of bladder; N40.0 Benign prostatic hyperplasia without lower urinary tract symptoms; Z79.82 Long term (current) use of aspirin; Z79.899 Other long term (current) drug therapy

== ENCOUNTER → 2019-10-14 | Outpatient (CLI) | payer MEDICARE, OTHER ==
[~2019-10-14] MED LIST changes: +ACET1TAB16 PO; +ASPI81TA21 PO; +ATOR1TAB21 PO; +CARB25TA9 PO; -FELO5TAB PO; +FELO5TAB26 PO; +FLOM0.4C39 PO; +GABA-1171 PO; +IBUP200T45 PO; +MULT-40 PO; +OMEP-218 PO; +OMEP1CAP73 PO; -OMEP20CA3 PO; +PROHANCE 279.3MG/ML 15ML VIAL (A9576) As Ordered ONE; +PROHANCE 279.3MG/ML 5ML VIAL (A9576) As Ordered ONE; +QUIN40TA26 PO; +SYNT75TA PO; -TUDO1AER2 INH; +TUDO1AER3 INH
--- NOTE | 2019-10-14 18:59 | REPVR ---
PROCEDURE INFORMATION: Exam: MR Lumbar Spine Without and With Contrast. 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 Contrast material: PROHANCE; Contrast volume: 16 ml; Contrast route: IV; COMPARISON: MRI L-SPINE W/ & W/O CONTRAST - OUTSIDE PRIOR 12/25/2018 4:23 PM FINDINGS: Vertebrae: Spinal cord: Conus medullaris is normal appearance to the T12-L1 level. L1-L2: Marked disc space narrowing endplate degeneration is again noted. There is now however a small amount of fluid signal in the mid to anterior disc space on the T2 and STIR sequences: series 301, image 1 frame 4, series 401, image 1 frame 4. 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 Series 701, image 1 frame 11. L2-L3: In comparison to prior study there is now partial collapse of the L2 and L3 vertebra increased signal in the disc space and epidural abscess narrowing the spinal canal to 8 mm AP with compression of both exiting L3 nerve roots in collapse of both neural foramen likely affecting the L2 nerve roots. L3-L4: Mild increased signal is again seen in the anterior aspect of the disc space. There is however now widening of the disc space and a compression fracture superior endplate of L4 which has increased signal on the STIR sequence. Series 401, image 1 frame 6. There is moderate spinal canal stenosis without significant neural foraminal narrowing. There is probable discitis/osteomyelitis at this level series 701, image 1 frame 10. L4-L5: Mild increase signal is again seen in the anterior aspect of the disc space. There is no spinal canal stenosis or neural foraminal narrowing. 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 Series 701, image 1 frame 8. L5-S1: Marked disc space narrowing and endplate degeneration with some enhancement in the posterior margin of the disc therefore there may be discitis osteomyelitis at this level as well. Soft tissues: There is probable abscess or phlegmon in the prevertebral soft tissues which is larger than at time of prior imaging extending from L1 to through L4-L5 levels. Series 401, image 1 frame 7. The abscess extending from the L2-L3 disc space into both vertebra measures approximately 2.8 x 2.4 by approximately 2.2 cm. This is best seen on the gadolinium T1 weighted STIR sequence series 701, image 1 frame 12. The T2 axial images were not performed through the abscess. There is a probable abscess in the right psoas muscle measuring 2 x 1.6 cm. IMPRESSION: In comparison the prior examination and there is now partial destruction of the L2 and L3 vertebra which contain an abscess which extends posteriorly into the epidural space causing spinal canal stenosis and nerve root compression. The epidural abscess extends from L1-L2 to L3-L4 levels with dilatation of the venous plexus below this level. There may also be discitis osteomyelitis at the L1-L2, L3-L4 and possibly L4-L5 and L5-S1 levels. There is a probable prevertebral phlegmon/abscess most prominent at the L2-L3 level but extending superiorly and inferiorly. There is also a right psoas muscle abscess. Electronically signed by: Gris Lemons On 10/14/2019 18:58:49 PM
== END ==
LOC: M RAD 14:55
PROVIDERS: ATTEND Internal Medicine Infectious Disease
DX: K68.12 Psoas muscle abscess (principal); G06.1 Intraspinal abscess and granuloma; M48.061 Spinal stenosis, lumbar region without neurogenic claudication; M51.36 Other intervertebral disc degeneration, lumbar region; R93.7 Abnormal findings on diagnostic imaging of other parts of musculoskeletal system; A18.01 Tuberculosis of spine
CPT/HCPCS: 72158; A9576

== ENCOUNTER → 2019-10-31 | Outpatient (CLI) | payer MEDICARE, OTHER ==
[~2019-10-31] MED LIST changes: +LIDOCAINE 1% MDV 20ML VIAL As Ordered ONE; -PROHANCE 279.3MG/ML 15ML VIAL (A9576) As Ordered ONE; -PROHANCE 279.3MG/ML 5ML VIAL (A9576) As Ordered ONE
--- NOTE | 2019-10-31 15:08 | REP ---
Clinical: Right psoas abscess Technique: Real time herzog scale ultrasound examination using curved array transducer. Findings: Directed ultrasound examination demonstrates no obvious fluid collection or abscess. Impression: No obvious fluid collection or abscess identified. Electronically Signed by Eugenio Bird MD 10/31/2019 03:00 P
[2019-10-31 15:45] VITALS: BP 155/82
--- NOTE | 2019-10-31 17:23 | REP ---
CT-GUIDED RIGHT PSOAS ABSCESS DRAIN The procedure was performed under the personal supervision of Dr. Moreno In the the patient has a history of a right psoas muscle abscess seen on a previous MRI dated 10/14/2019. The risks and benefits of the procedure were explained to the patient and informed consent was obtained. The right psoas muscle abscess was localized using CT guidance. The skin was prepped and draped in a sterile fashion. 1% lidocaine was used as a local anesthetic. A CT guidance a 18-gauge needle was inserted and 3 ml of yellow purulent fluid was withdrawn and sent to the lab for analysis. The patient tolerated the procedure well and there were no immediate complications. After the appropriate amount of monitored convalescence the patient was discharged from the department. Electronically Signed by PRADIP Rojas 10/31/2019 04:05 P Electronically Signed by Neeraj Moreno MD 10/31/2019 05:14 P
== END ==
LOC: M IRPRO 14:22
PROVIDERS: ATTEND Internal Medicine Infectious Disease
DX: K68.12 Psoas muscle abscess (principal)

== ENCOUNTER → 2019-11-04 | Outpatient (REF) | payer MEDICARE, OTHER ==
[~2019-11-04] MED LIST changes: -LIDOCAINE 1% MDV 20ML VIAL As Ordered ONE
== END ==
LOC: M SMT 16:58
PROVIDERS: ATTEND Urology
DX: Z85.51 Personal history of malignant neoplasm of bladder (principal)

== ENCOUNTER → 2020-04-14 | Outpatient (CLI) | payer MEDICARE, OTHER ==
[~2020-04-14] MED LIST changes: +ACET650T61 PO; -TYLE650T35 PO
== END ==
LOC: M RAD 10:55
PROVIDERS: ATTEND Psychiatry & Neurology Neurology
DX: D16.4 Benign neoplasm of bones of skull and face (principal); I63.9 Cerebral infarction, unspecified

== ENCOUNTER → 2020-11-09 | Outpatient (REF) | payer MEDICARE, OTHER | LOC: M SMT 19:07 | PROVIDERS: ATTEND Urology | DX: Z85.51 Personal history of malignant neoplasm of bladder (principal) ==

== ENCOUNTER → 2021-11-08 | Outpatient (REF) | payer MEDICARE, OTHER ==
[~2021-11-08] MED LIST changes: -IBUP200T45 PO; +IBUP200T46 PO; +OMEP-173 PO; -OMEP-218 PO
== END ==
LOC: M SMT 12:53
PROVIDERS: ATTEND Urology
DX: Z85.51 Personal history of malignant neoplasm of bladder (principal)

== ENCOUNTER → 2023-10-31 | Outpatient (REF) | payer MEDICARE, OTHER ==
[~2023-10-31] MED LIST changes: -ACET1TAB16 PO; +ACET300T48 PO; +TUDO1AER2 INH; -TUDO1AER3 INH
== END ==
LOC: M SMT 15:26
PROVIDERS: ATTEND Urology
DX: C67.9 Malignant neoplasm of bladder, unspecified (principal)

== ENCOUNTER → 2024-05-31 | Outpatient (REF) | payer MEDICARE, OTHER | LOC: M SMT 17:35 | PROVIDERS: ATTEND Urology | DX: C67.9 Malignant neoplasm of bladder, unspecified (principal) ==

== ENCOUNTER 2024-06-24 06:12 | Day surgery (SDC) | payer MEDICARE, OTHER ==
[~2024-06-24] VITALS: Ht 172.7 cm; Wt 84.9 kg
[~2024-06-24 06:12] MED LIST changes: +BAYE81TA10 PO; +CARB1TAB97 PO; +CLOP75TA2 PO; +FURO20TA2 PO; +OMEG10002 PO; +RASA1TAB PO
[2024-06-24] MEDS ORDERED: LR 1,000 ML IV SCH ×2 (06:40→08:35)
[2024-06-24] MEDS ORDERED: fentaNYL 100 MCG/2 ML INJECTION As Ordered ONE (07:05)
[2024-06-24] MEDS ORDERED: SUGAMMADEX SODIUM 500 MG/5 ML VIAL (BRIDION) As Ordered ONE (07:05)
[2024-06-24] MEDS ORDERED: LIDOCAINE 2% 100MG/5ML SDV (FOR ANES.) As Ordered ONE (07:05)
[2024-06-24] MEDS ORDERED: ROCURONIUM BROMIDE 50MG/5ML VIAL As Ordered ONE (07:05)
[2024-06-24] MEDS ORDERED: ONDANSETRON 4MG 2ML VIAL As Ordered ONE (07:05)
[2024-06-24] MEDS ORDERED: ETOMIDATE INJ 20MG/10ML VIAL As Ordered ONE (07:05)
[2024-06-24] MEDS ORDERED: propofoL 200 MG/20 ML VIAL As Ordered ONE (07:05)
[2024-06-24] MEDS: ceFAZolin SOD 2 GM in IV 1 EA IV ONE (07:35)
[2024-06-24] MEDS ORDERED: ACETAMINOPHEN 1000MG 100ML IV BAG As Ordered ONE (08:06)
[2024-06-24] MEDS: ISOVUE-300 61% 100ML VIAL As Ordered ONE (08:13)
[2024-06-24] MEDS: MITOMYCIN 40MG IN 20ML SWFI SYRINGE INTRAVESIC ONE (08:17)
[2024-06-24] MEDS ORDERED: HYDROMORPHONE HCL 0.5 MG/ 0.5 ML SYRINGE IV PRN (08:35)
[2024-06-24] MEDS ORDERED: ONDANSETRON 4MG 2ML VIAL IV PRN (08:35)
[2024-06-24] MEDS ORDERED: fentaNYL 100 MCG/2 ML INJECTION IV PRN (08:35)
[2024-06-24] MEDS ORDERED: oxyCODONE 5MG TAB PO PRN (08:35)
[2024-06-24] MEDS ORDERED: CEPH500C PO (08:44)
[2024-06-24] MEDS ORDERED: ACETAMINOPHEN 325 MG TAB PO PRN (09:00)
[2024-06-24 10:19] VITALS: BP 152/74; TEMP 97.9; O2SAT 96
== END 2024-06-24 10:49 | disposition home or self-care (01) ==
LOC: M SDC 06:12
PROVIDERS: ATTEND Urology
DX: C67.5 Malignant neoplasm of bladder neck (principal); C67.0 Malignant neoplasm of trigone of bladder; I25.10 Atherosclerotic heart disease of native coronary artery without angina pectoris; Z79.899 Other long term (current) drug therapy; Z87.891 Personal history of nicotine dependence
CPT/HCPCS: 52235; 52332; 76000; C1769; C2617; J0131; J0690; J1100; J2405; J3010; J9280; Q9967

== ENCOUNTER → 2025-01-20 | Outpatient (REF) | payer MEDICARE, OTHER ==
[~2025-01-20] MED LIST changes: +CEPH500C PO; -FLOM0.4C39 PO; +TAMS-18 PO
== END ==
LOC: M SMT 12:47
PROVIDERS: ATTEND Urology
DX: C67.9 Malignant neoplasm of bladder, unspecified (principal)